=== PATIENT | female | born 1950 | race Caucasian/White ===

== ENCOUNTER → 2021-11-26 09:25 | Outpatient (REF) | payer MEDICAID, SELFPAY ==
--- NOTE | 2021-11-26 09:39 | CA_ITS ---
Transthoracic Echocardiogram Patient (Last, First, Middle): Rosalie Wong C Gender: Female Date of : 1950 Age: 71 Procedure Date: 11/26/2021 Procedure Type: Transthoracic Echocardiogram Location: OP Height: 165.1 cm Weight: 102.51 kg BSA: 2.08 m2 Heart Rate: bpm BP: 125 / 63 mmHg Substation Technician: MARCELO Referring MD: Diamante Gunn MD Symptoms: I10 - Essential (primary) hypertension Study Quality: Adequate ECG Rhythm: Sinus Conclusions: - The left ventricular systolic function is normal. The calculated ejection fraction is 67% by biplane method. - There is mild calcification of the aortic valve. - There is mild mitral annular calcification. There is mild mitral valve regurgitation. Findings Left Ventricle Normal left ventricular cavity size. There is mildly increased left ventricular wall thickness. The left ventricular systolic function is normal. The calculated ejection fraction is 67% by biplane method. There is no evidence of regional wall motion abnormalities. E/E prime ratio is >15, consistent with elevated filling pressures. Evidence suggests grade I (mild) diastolic dysfunction. Right Ventricle Normal right ventricular cavity size and systolic function. Atria The left atrium is moderately dilated. The right atrium is normal in size. Aortic Valve There is a normal trileaflet aortic valve. There is mild calcification of the aortic valve. There is no aortic valve stenosis. There is no aortic valve regurgitation. Mitral Valve The mitral valve appears normal. There is mild mitral annular calcification. There is mild mitral valve regurgitation. There is no mitral valve stenosis. Pulmonic Valve There is trace pulmonic valve regurgitation. Tricuspid Valve Normal tricuspid valve structure. There is no tricuspid valve regurgitation. Tricuspid regurgitation envelope is inadequate for calculation of right ventricular systolic pressure. Great Vessels The aortic annulus, sinuses of valsalva, and asc aorta are normal in size. Venous The inferior vena cava is normal in size and collapses greater than 50% with inspiration. Pericardium/Pleural There is a trivial pericardial effusion. Prior Study Comparison No prior study available for comparison. Measurements 2D Linear Measurements IVSd: 1.27 0.6-0.9/0.6-1.0 cm LVIDd: 4.18 3.9-5.3/4.2-5.9 cm LVIDd Index: 2.01 2.4-3.2/2.2-3.1 cm/m2 LVIDs: 2.84 2.0-3.6 cm LVPWd: 1.19 0.7-1.1 cm LA Diam: 4.00 2.7-3.8/3.0-4.0 cm LAIDs Index: 1.92 1.5-2.3 cm/m2 LV Mass: 228.51 67-162/88-224 g LV Mass Index: 109.86 43-95/49-115 g/m2 LVOT Diam: 2.20 3.0+(-)1.3 cm 2D Systolic Function EF 4C: 68.20 >55% EF 2C: 65.20 >55% EF BiP: 66.60 >55% Mitral Valve MV Pk E: 1.08 MV PK A: 1.23 MV Decel Time: 289.00 E/A: 0.90 E'Lateral: 6.74 E'Medial: 4.35 E/E' Med: 24.80 E/E' Lat: 16.00 PHT: 85.00 MVA PHT: 2.59 Decel [place]: 3.75 Aortic Valve AoV Pk Paul: 1.43 AoV Mn Paul: 0.89 AoV VTI: 0.37 AoV Pk Grad: 8.00 Aov Mn Grad: 4.00 AUDREY Cont.VTI: 3.23 LVOT LVOT Pk Paul: 1.16 LVOT Mn Paul: 0.76 LVOT VTI: 0.31 LVOT Pk Grad: 5.00 LVOT Mn Grad: 3.00 LVOT Diam: 2.20 LVOT Area: 3.80 Diastolic Function MV Pk E: 1.08 MV Pk A: 1.23 E/A: 0.90 E'Medial: 4.35 E/E' Med: 24.80 E' Laterial: 6.74 E/E' Lat: 16.00 Tricuspid Valve RA Press: 3.00 Great Vessels Aorta Sinus of Valsalva: 3.00 2.0-3.[address] [place]: 2.58 1.7-3.4 cm Ao Asc: 3.50 2.1-3.4 cm Updated in Other Vendor System with Status of Final Rosendo Santa MD electronically signed on 11/26/2021 11:27:44 AM with status of Final
== END ==
LOC: HO.CARD 09:25
PROVIDERS: PCP Internal Medicine; Visit Provider Internal Medicine
DX: I10 Essential (primary) hypertension (principal); R01.1 Cardiac murmur, unspecified
CPT/HCPCS: 93306

== ENCOUNTER 2021-11-27 08:13 | Outpatient (REF) | payer MEDICAID, SELFPAY ==
--- NOTE | ~2021-11-27 | MM_ITS ---
EXAMINATION: MM SCREENING DIGITAL BREAST TOMOSYNTHESIS, BILATERAL CLINICAL INFORMATION: Screening. Asymptomatic. Prior outside mammography from [facility] currently unavailable. Age 71. No known family history breast cancer. The lifetime risk of breast cancer based on the Tyrer-Cuzick Model is 4%. COMPARISON: None. TECHNIQUE: Digital breast tomosynthesis is performed in both the craniocaudal and mediolateral oblique views along with computer-aided detection (CAD). Synthesized 2D images are generated from the tomosynthesis. FINDINGS: There are scattered areas of fibroglandular density (ACR BI-RADS breast composition Category b). There are no significant masses, abnormal calcifications, or other abnormalities. There is small circumscribed mammary node posterior upper outer left breast. The axilla and skin contours are unremarkable. MM/MM tomosynthesis screening BI IMPRESSION: No mammographic evidence of malignancy. ASSESSMENT: BI-RADS 2: Benign RECOMMENDATION: Routine annual mammography screening. This patient's information was entered into a reminder system with a target due date for their next mammogram.
== END 2021-11-27 08:14 | disposition home or self-care (01) ==
LOC: HO.MAMMO 08:13
PROVIDERS: PCP Internal Medicine; Visit Provider Internal Medicine
DX: Z12.31 Encounter for screening mammogram for malignant neoplasm of breast (principal)
CPT/HCPCS: 77063; 77067

== ENCOUNTER 2021-12-13 08:36 | Outpatient (REF) | payer MEDICAID, SELFPAY ==
[2021-12-13 11:21] LABS: MANUAL DIFF FLAG NO
[2021-12-13 11:31] LABS: Basophils Percent Auto 0.8 % (0-2); Eosinophils Absolute Auto 0.1 X10*3/uL (0.0-0.4); Eosinophils Percent Auto 2.7 % (0-4); Hematocrit 34.3 % (37.0-47.0); Hemoglobin 11.3 g/dl (12.0-16.0); Imm Gran Abs Auto 0.01 X10*3/uL (0.00-0.03); Imm Gran Pct Auto 0.3 % (0.0-0.4); Lymphocytes Absolute Auto 1.3 X10*3/uL (1.2-4.9); Lymphocytes Percent Auto 35.4 % (20-40); Mean Corpuscular HGB Conc 32.9 g/dl (31.0-35.0); Mean Corpuscular Hemoglobin 28.2 pg (27.0-33.0); Mean Corpuscular Volume 85.5 fL (80.0-98.0); Mean Platelet Volume 10.3 fL (9.4-12.3); Monocytes Absolute Auto 0.3 X10*3/uL (0.1-1.2); Monocytes Percent Auto 7.8 % (2-11); Platelet Count 205 X10*3/uL (160-400); Red Blood Count 4.01 X10*6/uL (4.20-5.50); Red Cell Distribution Width 13.2 % (11.0-16.0); White Blood Count 3.7 X10*3/uL (4.8-10.8)
[2021-12-13 11:59] LABS: Alanine Aminotransferase 24 U/L (0-31); Albumin Level 4.2 g/dL (3.5-5.0); Alkaline Phosphatase 69 U/L (39-117); Anion Gap 13 (12-20); Aspartate Amino Transferase 23 U/L (5-31); Bilirubin Total 0.7 mg/dL (0.0-1.0); Blood Urea Nitrogen 14 mg/dL (9-16); Calcium 8.9 mg/dL (8.4-10.2); Carbon Dioxide 27 mmol/L (22-29); Chloride 104 mmol/L (96-108); Cholesterol 244 mg/dL; Estimated Glomerular Filt Rate > 60; Glucose Fasting 118 mg/dL (60-99); HDL Cholesterol 45 mg/dL; LDL Cholesterol Calculated 175 mg/dl; Potassium 3.9 mmol/L (3.3-5.1); Sodium 140 mmol/L (135-145); Total Protein 6.6 g/dL (6.5-8.0); Triglycerides 123 mg/dL
[2021-12-13 12:05] LABS: TSH reflex Free T4 2.52 uIU/mL (0.32-4.0)
[2021-12-13 13:45] LABS: Appearance Urine Clear; Color Urine Yellow; Glucose Urine UA Negative (Negative); Leukocyte Esterase Urine Negative (Negative); Nitrite Urine Negative (Negative); PH 5.5 (5.0-8.0); Urine Blood Negative (Negative); Urine Ketones Negative (Negative); Urine Protein Negative (Neg-Trace)
[2021-12-13 13:52] LABS: Bacteria Urine None Seen (None Seen); Hyaline Casts Urine 0-2 /LPF (0-2); RBC Urine 0-2 /HPF (0-2); Squamous Epithelial Cell Urine 0-2 /HPF (0-2); WBC Urine 0-5 /HPF (0-5)
== END 2021-12-13 08:37 | disposition home or self-care (01) ==
LOC: HO.HMGCLDS 08:36
PROVIDERS: PCP Internal Medicine; Visit Provider Internal Medicine
DX: E78.5 Hyperlipidemia, unspecified (principal); R73.9 Hyperglycemia, unspecified; I10 Essential (primary) hypertension
CPT/HCPCS: 36415; 80053; 80061; 81001; 84443; 85025

== ENCOUNTER 2021-12-20 10:54 | Outpatient (REF) | payer MEDICAID, SELFPAY ==
[2021-12-20 14:27] LABS: Iron 102 mcg/dL (30-160); Percent Iron Saturation 34 % (15-50); Total Iron Binding Capacity 302 mcg/dL (228-428); Unsaturated Iron Binding 200 ug/dL
[2021-12-20 15:05] LABS: Folate 10.9 ng/mL (> or = 4.0); Vitamin B12 352 pg/mL (200-900)
== END 2021-12-20 10:55 | disposition home or self-care (01) ==
LOC: HO.HMGCLDS 10:54
PROVIDERS: PCP Internal Medicine; Visit Provider Internal Medicine
DX: D64.9 Anemia, unspecified (principal)
CPT/HCPCS: 36415; 82607; 82746; 83540

== ENCOUNTER 2022-02-07 09:25 | Outpatient (REF) | payer MEDICAID, SELFPAY ==
[2022-02-07 11:45] LABS: Baso%MD 0.9 %; Eos%MD 1.8 %; Hematocrit 34.7 % (37.0-47.0); Hemoglobin 11.4 g/dl (12.0-16.0); IG%MD 0.3 %; Mean Corpuscular HGB Conc 32.9 g/dl (31.0-35.0); Mean Corpuscular Hemoglobin 28.3 pg (27.0-33.0); Mean Corpuscular Volume 86.1 fL (80.0-98.0); Mean Platelet Volume 10.2 fL (9.4-12.3); Mono%MD 8.3 %; Neut%MD 52.7 %; Platelet Count 210 X10*3/uL (160-400); Red Blood Count 4.03 X10*6/uL (4.20-5.50); Red Cell Distribution Width 13.2 % (11.0-16.0); White Blood Count 3.4 X10*3/uL (4.8-10.8)
[2022-02-07 11:54] LABS: Estimated Average Glucose 123 mg/dL; Hemoglobin A1c % 5.9 %
[2022-02-07 12:17] LABS: Anion Gap 15 (12-20); Blood Urea Nitrogen 19 mg/dL (9-16); Calcium 9.4 mg/dL (8.4-10.2); Carbon Dioxide 28 mmol/L (22-29); Chloride 104 mmol/L (96-108); Cholesterol 243 mg/dL; Estimated Glomerular Filt Rate > 60; Glucose Fasting 130 mg/dL (60-99); HDL Cholesterol 47 mg/dL; LDL Cholesterol Calculated 179 mg/dl; Potassium 4.4 mmol/L (3.3-5.1); Sodium 143 mmol/L (135-145); Triglycerides 87 mg/dL
[2022-02-07 12:40] LABS: Vitamin D 25-OH Total 24.6 ng/mL (>30)
[2022-02-07 13:50] LABS: Lymphocytes Absolute Manual 1.2 X10*3/uL (1.2-4.9); Lymphocytes Percent Manual 34 % (20-40); Monocytes Absolute Manual 0.3 X10*3/uL (0.1-1.2); Monocytes Percent Manual 10 % (2-11); Neutrophils Percent Manual 56 % (45-73)
[2022-02-07 13:52] LABS: Hypochromasia 1+ (5-14) /OIF; Microcytosis 1+ (5-14) /OIF; Platelet Estimate NORMAL (NORMAL); Platelet Morphology Comment NORMAL; RBC Morphology NOTED
[2022-02-07 14:29] LABS: Band Neutrophils Percent 0 % (3-5); Neutrophils Absolute Manual 1.9 X10*3/uL (2.0-8.3)
[2022-02-12 08:07] LABS: IgA 102 mg/dL (70-320); IgG 1050 mg/dL (600-1540); IgM 39 mg/dL (50-300)
== END 2022-02-07 09:26 | disposition home or self-care (01) ==
LOC: HO.HMGCLDS 09:25
PROVIDERS: PCP Internal Medicine; Visit Provider Internal Medicine
DX: D64.9 Anemia, unspecified (principal); E55.9 Vitamin D deficiency, unspecified; E78.5 Hyperlipidemia, unspecified; R73.9 Hyperglycemia, unspecified; I10 Essential (primary) hypertension
CPT/HCPCS: 36415; 80048; 80061; 82306; 82784; 83036; 85007; 85027; 86334

== ENCOUNTER → 2022-03-26 10:59 | Outpatient (BNVA) | payer MEDICAID, SELFPAY | PROVIDERS: PCP Internal Medicine; Visit Provider Physician Assistant | DX: Z01.818 Encounter for other preprocedural examination (principal); R19.5 Other fecal abnormalities; Z80.0 Family history of malignant neoplasm of digestive organs | CPT/HCPCS: 99202 ==

== ENCOUNTER 2022-07-25 09:55 | Outpatient (REF) | payer MEDICAID, SELFPAY ==
[2022-07-25 11:17] LABS: MANUAL DIFF FLAG NO
[2022-07-25 11:51] LABS: Basophils Percent Auto 0.7 % (0-2); Eosinophils Absolute Auto 0.1 X10*3/uL (0.0-0.4); Eosinophils Percent Auto 2.1 % (0-4); Hematocrit 36.3 % (37.0-47.0); Hemoglobin 11.7 g/dl (12.0-16.0); Imm Gran Abs Auto 0.01 X10*3/uL (0.00-0.03); Imm Gran Pct Auto 0.2 % (0.0-0.4); Lymphocytes Absolute Auto 1.3 X10*3/uL (1.2-4.9); Lymphocytes Percent Auto 31.9 % (20-40); Mean Corpuscular HGB Conc 32.2 g/dl (31.0-35.0); Mean Corpuscular Hemoglobin 27.7 pg (27.0-33.0); Mean Platelet Volume 9.8 fL (9.4-12.3); Monocytes Absolute Auto 0.4 X10*3/uL (0.1-1.2); Monocytes Percent Auto 8.3 % (2-11); Neutrophils Absolute Auto 2.4 x10*3/uL (2.0-8.3); Neutrophils Percent Auto 56.8 % (45-73); Platelet Count 224 X10*3/uL (160-400); Red Blood Count 4.22 X10*6/uL (4.20-5.50); Red Cell Distribution Width 13.2 % (11.0-16.0); White Blood Count 4.2 X10*3/uL (4.8-10.8)
[2022-07-25 12:16] LABS: Estimated Average Glucose 126 mg/dL
[2022-07-25 12:19] LABS: Alanine Aminotransferase 24 U/L (0-31); Albumin Level 4.3 g/dL (3.5-5.0); Alkaline Phosphatase 83 U/L (39-117); Anion Gap 11 (12-20); Aspartate Amino Transferase 25 U/L (5-31); Bilirubin Total 0.8 mg/dL (0.0-1.0); Blood Urea Nitrogen 18 mg/dL (9-16); Calcium 9.4 mg/dL (8.4-10.2); Carbon Dioxide 29 mmol/L (22-29); Chloride 106 mmol/L (96-108); Cholesterol 249 mg/dL; Estimated Glomerular Filt Rate > 60; Glucose Fasting 121 mg/dL (60-99); HDL Cholesterol 48 mg/dL; Iron 95 mcg/dL (30-160); LDL Cholesterol Calculated 178 mg/dl; Percent Iron Saturation 35 % (15-50); Potassium 4.7 mmol/L (3.3-5.1); Sodium 141 mmol/L (135-145); Total Iron Binding Capacity 273 mcg/dL (228-428); Total Protein 6.6 g/dL (6.5-8.0); Triglycerides 117 mg/dL; Unsaturated Iron Binding 178 ug/dL
[2022-07-25 12:25] LABS: Creatinine Urine 110.45 mg/dL; Microalbum/Creatinine Ratio Ur 6.3 ug/mg cr
[2022-07-25 12:54] LABS: Folate 13.3 ng/mL (> or = 4.0); Vitamin B12 493 pg/mL (200-900); Vitamin D 25-OH Total 30.3 ng/mL (>30)
== END 2022-07-25 09:56 | disposition home or self-care (01) ==
LOC: HO.HMGCLDS 09:55
PROVIDERS: PCP Internal Medicine; Visit Provider Internal Medicine
DX: D64.9 Anemia, unspecified (principal); E55.9 Vitamin D deficiency, unspecified; E78.5 Hyperlipidemia, unspecified; R73.9 Hyperglycemia, unspecified; I10 Essential (primary) hypertension
CPT/HCPCS: 36415; 80053; 80061; 82043; 82306; 82607; 82746; 83036; 83540; 85025

== ENCOUNTER 2022-08-22 10:41 | Day surgery (SDC) | payer MEDICAID, SELFPAY ==
[2022-08-19 14:51] VITALS: BMI 39.4
--- NOTE | 2022-08-21 12:32 | HO.ANESPROP2 ---
Documented by User: Linda Andre NP 08/21/22 12:34 HPI - Anesthesia Eval Consult details Narrative: 71yo F for Colonoscopy PMFSH Active Problems Active Problems: All Active Problems (Updated 08/19/22 @ 14:48 by Jenn Rayo RN) HTN (hypertension) (Acute) Hyperlipidemia (Acute) Hyperglycemia (Acute) Annual physical exam (Acute) Heart murmur (Acute) Anemia (Acute) Vitamin D deficiency (Acute) Colonoscopy refused (Acute) Positive colorectal cancer screening using Cologuard test (Acute) Family history of colon cancer in father (Acute) Past Medical History Medical History (Updated 08/19/22 @ 14:48 by Jenn Rayo RN) Anemia Elevated cholesterol HTN (hypertension) Murmur Family History Family History Father Colon cancer, Onset Age: 92 Mother Hypertension Stroke Surgical History Surgical History (Updated 08/19/22 @ 14:53 by Jenn Rayo RN) Surgical history unknown Social History Social History Housing: House Patient Tobacco Use Status: Never used Tobacco e-Cigarette/Vaping Use: Never Used Are you DNR?: No Advance Directives: No Advance Directives Information Provided: Yes Nutrition Risks: No Nutritional Risk service: No Current occupational status: retired Cognitive needs: No Hearing needs: No Vision needs: Yes Meds Allergies Allergy/AdvReac Type Severity Reaction Status Date / Time No Known Allergies Allergy Verified 07/25/22 08:55 Exam Exam Date and Time: August 21, 2022 1232 Height,Weight and Vital Signs: Height 5 ft 3 in Weight 101.151 kg Pertinent Lab Results Pertinent Lab Results: Laboratory Tests 07/25/22 07/25/22 10:07 10:07 WBC 4.2 L Hgb 11.7 L Hct 36.3 L Plt Count 224 Sodium 141 Potassium 4.7 Chloride 106 Carbon Dioxide 29 BUN 18 H Creatinine 0.78 Narrative Narrative: ECHO 11/2021 Conclusions: - The left ventricular systolic function is normal.? The ? calculated ejection fraction is 67% by biplane method. ? - There is mild calcification of the aortic valve. ? - There is mild mitral annular calcification.? There is mild ? ? mitral valve regurgitation.? EKG 11/2021 SB @ 57 1st deg AV block Nonspec T wave abn Assessment and Plan Assessment Anesthesia Assessment: Chart Reviewed Documented by User: Uriel Cespedes MD 08/22/22 12:12 PMFSH Past Medical History Medical History (Updated 08/19/22 @ 14:48 by Jenn Rayo RN) Anemia Elevated cholesterol HTN (hypertension) Murmur Family History Family History Father Colon cancer, Onset Age: 92 Mother Hypertension Stroke Family history of problems with anesthesia: No Surgical History Surgical History (Updated 08/19/22 @ 14:53 by Jenn Rayo RN) Surgical history unknown History of Problems with Anesthesia: Yes Social History Social History Housing: House Patient Tobacco Use Status: Never used Tobacco e-Cigarette/Vaping Use: Never Used Are you DNR?: No Advance Directives: No Advance Directives Information Provided: Yes Nutrition Risks: No Nutritional Risk service: No Current occupational status: retired Cognitive needs: No Hearing needs: No Vision needs: Yes Meds Allergies Allergy/AdvReac Type Severity Reaction Status Date / Time No Known Allergies Allergy Verified 07/25/22 08:55 Exam Airway Mallampati Class: II TM Dist: >3cm Neck ROM: Full Heart: rrr Lungs: cts Assessment and Plan Assessment Anesthesia Assessment: Anesthesia Plan Discussed Final Anesthetic Review Family History of Problems with Anesthesia: No History of Problems with Anesthesia: Yes ASA Class: III Final Preanesthetic Review: No Changes in Pt Med Stat and Consent Obtained/Reviewed Patient Risk: Intermediate Procedure Risk: Low Anesthetic Plan Anesthetic Plan: MAC: Disposition: Standard PACU
[2022-08-22 10:57] VITALS: BP 157/78; PULSE 85; RESP 18; TEMP 36.1; O2SAT 97
[2022-08-22] MEDS: Lactated Ringers 1,000 ML 100 ML IVCONT (11:28)
--- NOTE | 2022-08-22 12:09 | MHC.SHP ---
Pre-Procedural Eval Section A Date of Service: 08/22/22 The patient is an INPATIENT: No The History & Physical has been completed within 30 days and I have reviewed it.: No Section B Chief Complaint: Family history of malignant neoplasm of digestive Relevant Family History (Specify if Yes): Yes Relevant Social History: None Present Medications: see Short Stay Collaborative assessment Medical History: Significant History (Hypertension, hyperlipidemia, anemia) History of Previous Operations: No relevant previous surgery Allergies: Allergies Allergy/AdvReac Type Severity Reaction Status Date / Time No Known Allergies Allergy Verified 07/25/22 08:55 Review of Systems Sugical H&P ROS: Negative: Constitution, Cardiovascular, Respiratory and Gastrointestinal Exam Surgical H&P Exam: Normal: Heart, Normal: Lungs, Normal: Extremities and Normal: Abdomen Plan Diagnosis/Plan: Unchanged I have reviewed the history and physical and performed a pertinent physical examination on my patient. No changes have occurred unless specified. Time Spent With Patient Time: Total time managing care of this patient today ____ minutes.
--- NOTE | 2022-08-22 12:19 | W.PM.OPN ---
Operative Note Operative Note Date of Service: 08/22/22 Narrative: COLONOSCOPY TILL CECUM WITH BIOPSIES, SNARE POLYPECTOMY AND SUBMUCOSAL INJECTION Pre-op diagnosis: Colon cancer screening (1st colonoscopy), positive Cologuard test, family history of colon cancer - Dad at an advanced age Post-op diagnosis:? Colon polyps, diverticulosis, hemorrhoids Endoscopist:? Varun Cyr MD Anesthesia:?MAC Consent: Indications for the procedure and potential complications of bleeding, perforation, reaction to medications and missed diagnosis were discussed with the patient with the help of her [place] speech language pathologist and informed consent was obtained. Instrument: Olympus PCF H 190 L variable stiffness pediatric colonoscope Monitoring: Vital signs and clinical assessment, intermittent blood pressure monitoring, continuous EKG monitoring, Pulse oximetry and Carbon Dioxide monitoring were done throughout the procedure. Please see anesthesia flowsheet. Colon withdrawl time was 31 minutes. Procedure: The patient was placed in the left lateral decubitis position and pre-procedure medications were administered. After a digital rectal examination of the ano-rectum, the video colonoscope was inserted into the rectum and advanced through the colon to the cecum. The colonoscope was slowly withdrawn in a retrograde panoramic fashion and the colon mucosa was carefully examined including a retroflexed view of the rectum. Findings and interventions are described below. Procedure Difficulty: Without difficulty Findings: Terminal Ileum: Not evaluated Cecum: Normal Ascending Colon: Two 5-6 mm sessile polyps removed with a cold snare and a cold biopsy A 10 - 12 mm flat polyp raised with 1 cc of [place] and removed with a hot snare Transverse Colon: A 10 mm sessile polyp - removed with a hot snare Descending Colon: Moderate diverticulosis Sigmoid Colon: Two 15 to 20 mm sessile polyps - removed with a hot snare. Moderate diverticulosis Rectum: A 2 to 2.5 cms sessile polyp - removed with a hot snare Ano-rectum: Moderate internal hemorrhoids Colon preparation: Excellent Impression and Post Procedure Diagnosis: Colonoscopy Findings: Two small and five medium to large sized polyps removed Moderate diverticulosis seen in the left colon Moderate hemorrhoids on retroflexed exam. Plan: I will send a letter with pathology results Patient has an appointment on 10/24/22 in the [facility] with NUBIA Laughlin. Repeat Colonoscopy interval based on path results - in 2 years if polyps are adenomatous and 10 years if polyps are hyperplastic. Above findings were reviewed with the patient and colon polyps and diverticulosis handouts were given in the discharge area
[2022-08-22 13:10] VITALS: BP 111/55; PULSE 70; RESP 18; TEMP 36.6; O2SAT 99
[2022-08-22 13:25] VITALS: BP 156/60; PULSE 72; RESP 16; O2SAT 98
[2022-08-22 13:40] VITALS: BP 156/63; PULSE 64; RESP 16; TEMP 36.4; O2SAT 98
== END 2022-08-22 14:34 | disposition home or self-care (01) ==
PROVIDERS: PCP Internal Medicine; Visit Provider Internal Medicine Gastroenterology
PROC: 0DJD8ZZ Inspection of Lower Intestinal Tract, Via Natural or Artificial Opening Endoscopic (ICD-10-PCS; CPT 45378; principal; 2022-08-22 12:20)
DX: R19.5 Other fecal abnormalities (principal); Z80.0 Family history of malignant neoplasm of digestive organs; D12.2 Benign neoplasm of ascending colon; D12.3 Benign neoplasm of transverse colon; D12.8 Benign neoplasm of rectum; K57.30 Diverticulosis of large intestine without perforation or abscess without bleeding; K64.8 Other hemorrhoids; D64.9 Anemia, unspecified; I10 Essential (primary) hypertension; E78.5 Hyperlipidemia, unspecified; Z79.899 Other long term (current) drug therapy
CPT/HCPCS: 45385; 45380; 45381; 88305

== ENCOUNTER → 2022-10-24 09:04 | Outpatient (BNVA) | payer MEDICAID, SELFPAY | PROVIDERS: Visit Provider Physician Assistant | DX: D12.6 Benign neoplasm of colon, unspecified (principal); K57.30 Diverticulosis of large intestine without perforation or abscess without bleeding | CPT/HCPCS: 99212 ==

== ENCOUNTER 2022-11-19 10:01 | Outpatient (AMB) | payer MEDICAID, SELFPAY ==
--- NOTE | 2022-11-19 10:15 | MHC.PC.OV ---
Vital Signs 11/19/22 10:16 Height 5 ft 3 in Weight 221 lb BMI 39.1 BP 120/78 Blood Pressure Location Lt brachial Position Sitting Pulse 60 Pulse Source Pulse Oximeter Pulse Oximetry (%) 97 Oxygen Delivery Method Room Air Intake Visit Reasons: 4 month f/u labs Allergies No Known Allergies Allergy (Verified 11/19/22 10:17) Medication List - Last Reconciled 11/19/22 by Diamante Gunn MD indapamide 1.25 mg PO QAM losartan 50 mg PO DAILY paroxetine HCl 10 mg PO DAILY potassium chloride ER 10 mEq PO DAILY Tobacco use date assessed: 07/25/22 HPI 4 month f/u labs HPI Details Pt presents for f/u HTN, stable on meds. Pt c/o chronic R shoulder and right elbow pain worse when using and lifting. Patient denies any weakness in the right upper extremity. PFSH Medical History (Updated 11/19/22 @ 11:08 by Diamante Gunn MD) Anemia Elevated cholesterol HTN (hypertension) Murmur Surgical History (Updated 11/19/22 @ 11:06 by Diamante Gunn MD) Hx of colonoscopy Surgical history unknown Family History Father Colon cancer, Onset Age: 92 Mother Hypertension Stroke Social History Housing: House Patient Tobacco Use Status: Never used Tobacco e-Cigarette/Vaping Use: Never Used service: No Current occupational status: retired Cognitive needs: No Hearing needs: No Vision needs: Yes Questionnaire Thrive Questionnaire Date Thrive assessed: 07/25/22 MADHURI-7 AMB Questionnaire MADHURI-7 Date MADHURI - 7 assessed: 07/25/22 Source: Developed by Drs. Niranjan Rivera, Daisy Dean, Herminio Herman and colleagues, with an educational sky from [employer]. Review of Systems Const All systems reviewed & are unremarkable except as noted in HPI and below Reports no additional complaints Eyes Reports no additional complaints ENT Reports no additional complaints Card Reports no additional complaints Resp Reports no additional complaints GI Reports no additional complaints Reports no additional complaints Physical exam (Primary Care) Vital Signs: Last Vital Signs Pulse 60 11/19/22 10:16 BP 120/78 11/19/22 10:16 Pulse Ox 97 11/19/22 10:16 Oxygen Delivery Method Room Air 11/19/22 10:16 BMI result Body Mass Index 39.1 Tobacco/Smoking Status: Tobacco use Status Tobacco use date assessed 07/25/22 11/19/22 10:18 Patient Tobacco Use Status Never used Tobacco 11/19/22 10:18 e-Cigarette/Vaping Use Never Used 11/19/22 10:18 Thrive Assessment: Date of Thrive Assessment Date Thrive assessed 07/25/22 11/19/22 10:18 Const General: no acute distress HENMT Head: Yes normal to inspection Ears: hearing grossly normal bilaterally Throat: Yes posterior oropharynx normal Eyes General: appearance normal, both eyes and all related structures Neck Neck: Yes no lymphadenopathy and Yes supple Resp Effort & Inspection: normal respiratory effort Auscultation: clear to auscultation bilaterally Cardio Rhythm: regular rhythm Heart sounds: S1 normal heart sound present and S2 normal heart sound present GI Inspection: Yes normal to inspection Palpation (GI): Soft to palpation Extrem Other: DECREASED RANGE OF MOTION RIGHT UPPER SHOULDER AND RIGHT ELBOW Assessment and Plan Assessment & Plan (1) HTN (hypertension): Code(s): I10 - Essential (primary) hypertension Plan: cont meds (2) Hyperlipidemia: Comment: Patient declined taking statin Code(s): E78.5 - Hyperlipidemia, unspecified Plan: cont low cholesterol diet (3) Hyperglycemia: Comment: A1c 5.9 03/12 Code(s): R73.9 - Hyperglycemia, unspecified Plan: cont ADA check A1C today (4) Vitamin D deficiency: Code(s): E55.9 - Vitamin D deficiency, unspecified (5) Shoulder pain, right: Code(s): M25.511 - Pain in right shoulder Plan: check XR and refer to PT (6) Anemia: Comment: Anemia and neutropenia, normal iron studies vitamin B12 and TSH Code(s): D64.9 - Anemia, unspecified Plan: MONITOR CBC (7) Hx of colonoscopy: Comment: 08/2022 Ger, multiple polyps, repeat 1 yr Code(s): Z98.890 - Other specified postprocedural states Orders: Orders Comprehensive [place]. Panel Fast Today E55.9 - Vitamin D deficiency, unspecified, E78.5 - Hyperlipidemia, unspecified, I10 - Essential (primary) hypertension, R73.9 - Hyperglycemia, unspecified Hemoglobin A1c Today E78.5 - Hyperlipidemia, unspecified, I10 - Essential (primary) hypertension, R73.9 - Hyperglycemia, unspecified Lipid Panel Today E55.9 - Vitamin D deficiency, unspecified, E78.5 - Hyperlipidemia, unspecified, I10 - Essential (primary) hypertension, R73.9 - Hyperglycemia, unspecified Complete Blood Count Auto Diff Today E55.9 - Vitamin D deficiency, unspecified, E78.5 - Hyperlipidemia, unspecified, I10 - Essential (primary) hypertension, R73.9 - Hyperglycemia, unspecified PT Evaluation and Treatment Today M25.511 - Pain in right shoulder XR elbow RT 2V Today M25.511 - Pain in right shoulder XR shoulder RT min 2V Today M25.511 - Pain in right shoulder Coding Level of Care Code Est Pt Level 4 (59292) Diagnoses HTN (hypertension) I10 Hyperlipidemia E78.5 Hyperglycemia R73.9 Vitamin D deficiency E55.9 Shoulder pain, right M25.511 Anemia D64.9 Hx of colonoscopy Z98.890
[2022-11-19 10:16] VITALS: BP 120/78; PULSE 60; O2SAT 97; BMI 39.1
== END 2022-11-19 10:51 | disposition home or self-care (01) ==
PROVIDERS: Visit Provider Internal Medicine
DX: I10 Essential (primary) hypertension (principal); E55.9 Vitamin D deficiency, unspecified; Z98.890 Other specified postprocedural states; E78.5 Hyperlipidemia, unspecified; R73.9 Hyperglycemia, unspecified; M25.511 Pain in right shoulder; D64.9 Anemia, unspecified
CPT/HCPCS: 99214

== ENCOUNTER 2022-12-05 08:47 | Outpatient (REF) | payer MEDICAID, SELFPAY ==
--- NOTE | ~2022-12-05 | XR_ITS ---
EXAMINATION: XR ELBOW, RIGHT CLINICAL INFORMATION: Pain COMPARISON: None available. TECHNIQUE: AP, lateral, and oblique views of the right elbow. FINDINGS: No acute fracture or dislocation. Mild degenerative changes of the elbow with triceps tendon enthesopathy and degenerative spurring tendon. Soft tissues are unremarkable. No joint effusion. XR/XR elbow RT 2V IMPRESSION: Mild degenerative changes of the elbow.
--- NOTE | ~2022-12-05 | XR_ITS ---
EXAMINATION: XR SHOULDER, RIGHT CLINICAL INFORMATION: Reason for Exam M25.511 - Pain in right shoulder COMPARISON: None TECHNIQUE: Four views of the shoulder. FINDINGS: No acute fracture or dislocation. Moderate degenerative changes of the acromioclavicular joint with degenerative spurring and loss of joint space. Glenohumeral joint space maintained. Soft tissues are unremarkable. XR/XR shoulder RT min 2V IMPRESSION: * Moderate degenerative changes of the shoulder.
[2022-12-05 11:17] LABS: MANUAL DIFF FLAG NO
[2022-12-05 11:30] LABS: Eosinophils Absolute Auto 0.1 X10*3/uL (0.0-0.4); Eosinophils Percent Auto 2.8 % (0-4); Hematocrit 35.2 % (37.0-47.0); Hemoglobin 11.6 g/dl (12.0-16.0); Imm Gran Abs Auto 0.01 X10*3/uL (0.00-0.03); Imm Gran Pct Auto 0.3 % (0.0-0.4); Lymphocytes Absolute Auto 1.2 X10*3/uL (1.2-4.9); Lymphocytes Percent Auto 31.2 % (20-40); Mean Platelet Volume 10.2 fL (9.4-12.3); Monocytes Absolute Auto 0.4 X10*3/uL (0.1-1.2); Monocytes Percent Auto 9.8 % (2-11); Neutrophils Absolute Auto 2.2 x10*3/uL (2.0-8.3); Neutrophils Percent Auto 54.9 % (45-73); Platelet Count 222 X10*3/uL (160-400); Red Blood Count 4.14 X10*6/uL (4.20-5.50); Red Cell Distribution Width 13.5 % (11.0-16.0)
[2022-12-05 11:40] LABS: Estimated Average Glucose 123 mg/dL; Hemoglobin A1c % 5.9 %
[2022-12-05 11:55] LABS: Alanine Aminotransferase 26 U/L (0-31); Albumin Level 4.2 g/dL (3.5-5.0); Alkaline Phosphatase 73 U/L (39-117); Anion Gap 10 (12-20); Aspartate Amino Transferase 22 U/L (5-31); Bilirubin Total 0.8 mg/dL (0.0-1.0); Blood Urea Nitrogen 23 mg/dL (9-16); Calcium 9.7 mg/dL (8.4-10.2); Carbon Dioxide 29 mmol/L (22-29); Chloride 105 mmol/L (96-108); Cholesterol 253 mg/dL; Estimated Glomerular Filt Rate > 60; Glucose Fasting 122 mg/dL (60-99); HDL Cholesterol 50 mg/dL; LDL Cholesterol Calculated 186 mg/dl; Potassium 4.2 mmol/L (3.3-5.1); Sodium 140 mmol/L (135-145); Triglycerides 85 mg/dL
== END 2022-12-05 08:48 | disposition home or self-care (01) ==
LOC: HO.HMGCX 08:47
PROVIDERS: PCP Internal Medicine; Visit Provider Internal Medicine
DX: M25.511 Pain in right shoulder (principal); M25.521 Pain in right elbow; E55.9 Vitamin D deficiency, unspecified; E78.5 Hyperlipidemia, unspecified; I10 Essential (primary) hypertension; R73.9 Hyperglycemia, unspecified
CPT/HCPCS: 36415; 73030; 73070; 80053; 80061; 83036; 85025

== ENCOUNTER 2022-12-19 08:00 | Outpatient (RCR) | payer MEDICAID, SELFPAY ==
--- NOTE | 2023-05-06 14:17 | MHC.PT.DC ---
[facility] [place] Office [place] Office [place] Office [address] Fanny Hamm [address] [phone] F: [phone] F: [phone] F: [phone] F: [phone] Physical Therapy Discharge Report Diagnosis: pain in R shoulder Date of Surgery: Date of Evaluation: 12/12/22 Date of Discharge: 01/16/23 Treatments to Date: 3 Cancellations to Date: No Shows to Date: Discharge Status: Independent with HEP Discharge Summary: Pt elected to stop at this time. 12/19/22: progressing well on s/s. no adverse reactions and we updated HEP 12/17/22: pt progressing well with skilled PT. less pain with overhead reach. compliant with HEP. we will progress as tolerated NV. Patient is a 72 year old R handed female who presents with s/s consistent with R shoulder pain. She does not work but does like to stay active around the house and in the community. Patient past medical history includes HTN. Current impairments include pain, posture, ROM, strength, activity tolerance and functional mobility. Functional limitations include decreased ability to reach, dress, lift, sleep and perform most daily activities. Patient is motivated with good rehab potential. Skilled PT will address impairments and functional limitations in order to achieve goals. Electronically signed by: Aron Fournier, PT Please sign and return to therapist. Thank you for your referral.
== END 2023-05-06 14:17 | disposition home or self-care (01) ==
LOC: HO.PTCHIC 08:00
PROVIDERS: PCP Internal Medicine; Visit Provider Internal Medicine
DX: M25.511 Pain in right shoulder (principal)
CPT/HCPCS: 97110; 97140; 97162

== ENCOUNTER 2022-12-31 11:32 | Outpatient (REF) | payer MEDICAID, SELFPAY | END 2022-12-31 11:33 | disposition home or self-care (01) | LOC: HO.MAMMO 11:32 | PROVIDERS: PCP Internal Medicine; Visit Provider Internal Medicine | DX: Z12.31 Encounter for screening mammogram for malignant neoplasm of breast (principal) | CPT/HCPCS: 77063; 77067 ==

== ENCOUNTER → 2022-12-31 11:45 | Outpatient (BNV) | payer MEDICAID, SELFPAY | PROVIDERS: PCP Internal Medicine; Visit Provider Radiology Diagnostic Radiology | DX: Z12.31 Encounter for screening mammogram for malignant neoplasm of breast (principal) | CPT/HCPCS: 77063; 77067 ==

== ENCOUNTER 2023-05-22 09:48 | Outpatient (REF) | payer MEDICAID, SELFPAY ==
[2023-05-22 11:10] LABS: MANUAL DIFF FLAG NO
[2023-05-22 11:41] LABS: Basophils Percent Auto 0.9 % (0-2); Eosinophils Absolute Auto 0.1 X10*3/uL (0.0-0.4); Eosinophils Percent Auto 1.8 % (0-4); Hemoglobin 11.7 g/dl (12.0-16.0); Imm Gran Abs Auto 0.01 X10*3/uL (0.00-0.03); Imm Gran Pct Auto 0.3 % (0.0-0.4); Lymphocytes Absolute Auto 1.1 X10*3/uL (1.2-4.9); Lymphocytes Percent Auto 33.1 % (20-40); Mean Corpuscular HGB Conc 33.4 g/dl (31.0-35.0); Mean Corpuscular Hemoglobin 28.3 pg (27.0-33.0); Mean Corpuscular Volume 84.7 fL (80.0-98.0); Monocytes Absolute Auto 0.3 X10*3/uL (0.1-1.2); Neutrophils Absolute Auto 1.8 x10*3/uL (2.0-8.3); Neutrophils Percent Auto 54.9 % (45-73); Platelet Count 213 X10*3/uL (160-400); Red Blood Count 4.13 X10*6/uL (4.20-5.50); Red Cell Distribution Width 13.5 % (11.0-16.0); White Blood Count 3.3 X10*3/uL (4.8-10.8)
[2023-05-22 11:45] LABS: Estimated Average Glucose 123 mg/dL; Hemoglobin A1c % 5.9 % (<6.0)
[2023-05-22 12:14] LABS: Alanine Aminotransferase 17 U/L (0-31); Alkaline Phosphatase 70 U/L (39-117); Anion Gap 10 (12-20); Aspartate Amino Transferase 18 U/L (5-31); Bilirubin Total 0.6 mg/dL (0.0-1.0); Blood Urea Nitrogen 17 mg/dL (9-16); Carbon Dioxide 30 mmol/L (22-29); Chloride 104 mmol/L (96-108); Cholesterol 225 mg/dL (<200); Estimated Glomerular Filt Rate > 60; Glucose Fasting 115 mg/dL (60-99); HDL Cholesterol 49 mg/dL (>40); LDL Cholesterol Calculated 157 mg/dL (<100); Sodium 140 mmol/L (135-145); Total Protein 6.6 g/dL (6.5-8.0); Triglycerides 98 mg/dL (<150)
[2023-05-22 13:55] LABS: Creatinine Urine 116.73 mg/dL; Microalbum/Creatinine Ratio Ur 6.8 ug/mg cr (<30)
== END 2023-05-22 09:49 | disposition home or self-care (01) ==
LOC: HO.HMGCLDS 09:48
PROVIDERS: PCP Internal Medicine; Visit Provider Internal Medicine
DX: I10 Essential (primary) hypertension (principal); E78.5 Hyperlipidemia, unspecified; R73.9 Hyperglycemia, unspecified; D64.9 Anemia, unspecified
CPT/HCPCS: 36415; 80053; 80061; 82043; 82570; 83036; 85025

== ENCOUNTER 2023-05-27 08:35 | Outpatient (AMB) | payer MEDICAID, SELFPAY ==
[2023-05-27 08:37] VITALS: BP 144/76; PULSE 71; O2SAT 98; BMI 39.1
--- NOTE | 2023-05-27 08:37 | A.OFFPC_ITS ---
Vital Signs 05/27/23 08:37 Height 5 ft 3 in Weight 221 lb BMI 39.1 BP 144/76 H Blood Pressure Location Lt brachial Position Sitting Pulse 71 Pulse Source Pulse Oximeter Pulse Oximetry (%) 98 Oxygen Delivery Method Room Air Intake Visit Reasons: Annual PE Intake Note: Pt is here today for PE. Allergies No Known Allergies Allergy (Verified 05/27/23 08:51) Medication List - Last Reconciled 05/27/23 by Diamante Gunn MD indapamide 1.25 mg PO QAM losartan 50 mg PO DAILY losartan 100 mg PO DAILY paroxetine HCl 10 mg PO DAILY potassium chloride ER 10 mEq PO DAILY Tobacco use date assessed: 05/27/23 Fall risk assessment: No Falls in past year Last assessed Fall Risk: 05/27/23 Dental Screening Dental Screen Date: 05/27/23 Did you have a dental visit in the last 12 months?: Yes Did you have a dental problem in the last 6 months where you did not have access to dental care?: No Was dental information given to patient?: Patient has dentist HPI Annual PE HPI Details Patient presents for physical PFSH Medical History Elevated cholesterol Murmur HTN (hypertension) Anemia Surgical History Hx of colonoscopy Surgical history unknown Family History Father Colon cancer, Onset Age: 92 Mother Hypertension Stroke Social History Housing: House Patient Tobacco Use Status: Never used Tobacco e-Cigarette/Vaping Use: Never Used service: No Current occupational status: retired Cognitive needs: No Hearing needs: No Vision needs: Yes Questionnaire PHQ-9 Over the last 2 weeks, how often have you been bothered by any of the following problems? 1. Little interest or pleasure in doing things: not at all 2. Feeling down, depressed, or hopeless: not at all 3. Trouble falling or staying asleep, or sleeping too much: not at all 4. Feeling tired or having little energy: not at all 5. Poor appetite or overeating: not at all 6. Feeling bad about yourself - or that you are a failure or have let yourself or your family down: not at all 7. Trouble concentrating on things, such as reading the newspaper or watching television: not at all 8. Moving or speaking so slowly that other people could have noticed. Or the opposite - being so fidgety or restless that you have been moving around a lot more than usual: not at all 9. Thoughts that you would be better off or of hurting yourself in some way: not at all Total score: 0 Depression Screening Interpretation: Negative Depression Screening Done: Yes Source: Developed by Drs. Niranjan Rivera, Daisy Dean, Herminio Herman and colleagues, with an educational sky from [employer]. Thrive Questionnaire Date Thrive assessed: 05/27/23 I am a: Patient What is your living situation today?: I have a steady place to live Within the past 12 months, did the food you bought not last and you didn't have the money to get more?: Never true Within the past 12 months, did you worry whether your food would run out before you got money to buy more?: Never true Do you have trouble paying for medicines?: No Do you have trouble getting transportation to medical appointments?: No Do you have trouble paying your heating and electricity bill?: No Do you have trouble taking care of your child, family member or friend?: No Do you have trouble with day-to-day activities such as bathing, preparing meals, shopping, managing finances, etc.?: No Are you currently unemployed and looking for a job?: No Are you interested in more education?: No Please select the resources that you would like help with: None Currently or been in a relationship where the following occur: no concerns re ported THRIVE Score: 0 AUDIT C Alcohol Use Questionnaire (AUDIT-C) 1. How often do you have a drink containing alcohol?: Never 3. How often do you have six or more drinks on one occasion?: Never Total Score: 0 MADHURI-7 AMB Questionnaire MADHURI-7 Date MADHURI - 7 assessed: 05/27/23 Feeling nervous, anxious, or on edge: 0 = Not at all Not being able to stop or control worryin = Not at all Worrying too much about different things: 0 = Not at all Trouble relaxin = Not at all Being so restless that it is hard to sit still: 0 = Not at all Becoming easily annoyed or irritable: 0 = Not at all Feeling afraid as if something awful might happen: 0 = Not at all Total MADHURI-7 score (0-4 normal; 5-9 mild; 10-14 moderate; 15-21 severe): 0 Source: Developed by Drs. Niranjan Rivera, Daisy Dean, Herminio Herman and colleagues, with an educational sky from [employer]. Review of Systems Const All systems reviewed & are unremarkable except as noted in HPI and below Reports no additional complaints Eyes Reports no additional complaints ENT Reports no additional complaints Card Reports no additional complaints Resp Reports no additional complaints GI Reports no additional complaints Reports no additional complaints Physical exam (Primary Care) Vital Signs: Last Vital Signs Pulse 71 05/27/23 08:37 BP 144/76 H 05/27/23 08:37 Pulse Ox 98 05/27/23 08:37 Oxygen Delivery Method Room Air 05/27/23 08:37 BMI result Body Mass Index 39.1 Tobacco/Smoking Status: Tobacco use Status Tobacco use date assessed 05/27/23 05/27/23 08:56 Patient Tobacco Use Status Never used Tobacco 05/27/23 08:56 e-Cigarette/Vaping Use Never Used 05/27/23 08:39 PHQ-9: PHQ-9 Score PHQ-9: Total score 0 05/27/23 09:43 Depression Screening Interpretation: Negative Thrive Assessment: Date of Thrive Assessment Date Thrive assessed 05/27/23 05/27/23 09:05 Currently or been in a relationship where the following occur: no concerns reported Const General: no acute distress HENMT Head: Yes normal to inspection Ears: hearing grossly normal bilaterally Face and sinus: Yes normal facial exam Eyes General: appearance normal, both eyes and all related structures Neck Neck: Yes supple Resp Effort & Inspection: normal respiratory effort Auscultation: clear to auscultation bilaterally Cardio Rhythm: regular rhythm Heart sounds: S1 normal heart sound present and S2 normal heart sound present GI Inspection: Yes normal to inspection Palpation (GI): Soft to palpation Percussion: Yes normal to percussion Auscultation: normal bowel sounds Assessment and Plan Assessment & Plan (1) Hyperglycemia: Comment: A1c 5.9 03/12 Code(s): R73.9 - Hyperglycemia, unspecified Plan: Continue ADA diet increase exercise weight loss discussed with the patient (2) Anemia: Comment: Anemia and neutropenia, normal iron studies vitamin B12 and TSH Code(s): D64.9 - Anemia, unspecified Plan: Monitor CBC and iron studies (3) Vitamin D deficiency: Code(s): E55.9 - Vitamin D deficiency, unspecified Plan: Continue vitamin-D supplement (4) HTN (hypertension): Code(s): I10 - Essential (primary) hypertension Plan: Blood pressure is high and losartan will be increased to 100 mg a day. Basic metabolic panel will be checked in 1 to 2 weeks and patient will return in 1 month Orders: Orders 2 IRON PROFILE 1 Week D64.9 - Anemia, unspecified, E55.9 - Vitamin D deficiency, unspecified, R73.9 - Hyperglycemia, unspecified Magnesium 1 Week D64.9 - Anemia, unspecified, I10 - Essential (primary) hypertension Vitamin D 25-OH Total 1 Week D64.9 - Anemia, unspecified, I10 - Essential (primary) hypertension Basic Metabolic Panel 1 Week D64.9 - Anemia, unspecified, E55.9 - Vitamin D deficiency, unspecified, R73.9 - Hyperglycemia, unspecified Vitamin B12 and Folate 1 Week D64.9 - Anemia, unspecified, E55.9 - Vitamin D deficiency, unspecified, R73.9 - Hyperglycemia, unspecified Immunofixation Pnl, Serum 1 Week D64.9 - Anemia, unspecified, E55.9 - Vitamin D deficiency, unspecified, R73.9 - Hyperglycemia, unspecified C Reactive Protein 1 Week D64.9 - Anemia, unspecified, E55.9 - Vitamin D deficiency, unspecified, R73.9 - Hyperglycemia, unspecified Medications: New losartan 100 mg PO DAILY 90 tabs 0RF Discontinued losartan Discontinued Reason: Doctor's Order 50 mg PO DAILY 90 tabs 3RF Coding Level of Care Code Est Pt Prev Care >65y(46359) Diagnoses Hyperglycemia R73.9 Anemia D64.9 Vitamin D deficiency E55.9 HTN (hypertension) I10
== END 2023-05-27 09:54 | disposition home or self-care (01) ==
PROVIDERS: PCP Internal Medicine; Visit Provider Internal Medicine
DX: Z00.00 Encounter for general adult medical examination without abnormal findings (principal); R73.9 Hyperglycemia, unspecified; D64.9 Anemia, unspecified; E55.9 Vitamin D deficiency, unspecified; I10 Essential (primary) hypertension
CPT/HCPCS: 99397

== ENCOUNTER 2023-05-28 09:24 | Outpatient (AMB) | payer MEDICAID, SELFPAY ==
--- NOTE | 2023-05-28 09:34 | A.OFFVIS_ITS ---
Intake Vital Signs 05/28/23 09:42 Height 5 ft 3 in Weight 220 lb 7.396 oz BMI 39.0 BP 129/51 L Blood Pressure Location Lt brachial Position Sitting Pulse 73 Pulse Oximetry (%) 96 Intake Visit Reasons: 1 year follow up Intake Note: Patient is seen in office for follow up visit, possible repeat colonoscopy. Pt c/o: denies any concerns at the time of visit, here to have her colonoscopy rescheduled Safety And Security Officer Required: No Accompanied by: Family/Other Allergies No Known Allergies Allergy (Verified 05/28/23 09:44) Medication List - Last Reconciled 05/28/23 by Patricia Moya PA-C indapamide 1.25 mg PO QAM losartan 100 mg PO DAILY paroxetine HCl 10 mg PO DAILY potassium chloride ER 10 mEq PO DAILY HPI HPI Comments History of Present Illness Details A 72-year-old female follows up for discussion of polyp surveillance colonoscopy 09/07/2022 revealed tubulovillous adenoma as well as other tubular adenomas was recommended to repeat colonoscopy in 1 year. Appetite is very good- bowels are normal Here today with her daughter who interprets for her they declined translation device No nausea, vomiting, hematemesis, hematochezia fever chills PFSH Medical History (Updated 05/28/23 @ 09:58 by Patricia Moya PA-C) Tubulovillous adenoma of colon Elevated cholesterol Murmur HTN (hypertension) Anemia Surgical History Hx of colonoscopy Surgical history unknown Family History Father Colon cancer, Onset Age: 92 Mother Hypertension Stroke Social History Housing: House Patient Tobacco Use Status: Never used Tobacco e-Cigarette/Vaping Use: Never Used service: No Current occupational status: retired Cognitive needs: No Hearing needs: No Vision needs: Yes Review of Systems Const All systems reviewed & are unremarkable except as noted in HPI and below Card Denies chest pain and Denies dyspnea Resp Denies dyspnea GI Denies abdominal pain, Denies change in bowel habits, Denies nausea and Denies vomiting Physical Exam Vital Signs: Last Vital Signs Pulse 73 05/28/23 09:42 BP 129/51 L 05/28/23 09:42 Pulse Ox 96 05/28/23 09:42 BMI result Body Mass Index 39.0 Const General: cooperative, healthy appearing, comfortable and no acute distress Orientation/consciousness: patient oriented x3 Limitations: language barrier Eyes Sclerae: sclerae normal Resp Effort & Inspection: normal respiratory effort and able to speak in complete sentences Auscultation: clear to auscultation bilaterally, no rales, no rhonchi and no wheezes Cardio Rate: regular rate Rhythm: regular rhythm Heart sounds: S1 normal heart sound present, S2 normal heart sound present and no murmurs (No murmur appreciated) GI Palpation (GI): Soft to palpation and nontender Auscultation: normal bowel sounds Skin General skin exam: no rashes or lesions noted Neuro General: patient oriented x3 Extrem General: Yes full ROM Psych Appearance: grossly normal and well kempt Mental Status: mental status grossly normal Speech and movement: Normal speech and movement present and Clear speech present Affect: normal affect Attitude: cooperative Thought process: Normal thought process present Thought content: Normal thought content present Insight: Good insight present (Psych) Judgement: Good judgement present (Psych) Results Reviewed Results Reviewed: Plan: I will send a letter with pathology results Patient has an appointment on 10/24/22 in the [facility] with NUBIA Laughlin. Repeat Colonoscopy interval based on path results - in 2 years if polyps are adenomatous and 10 years if polyps are hyperplastic. Above findings were reviewed with the patient and colon polyps and diverticulosis handouts were given in the discharge area Name:?Rosalie Wong Age/Sex: 71/FAttending: Varun Cyr MD : 1950Submitted by: Varun Cyr MD to: Diamante Gunn MD MR #: [id number]? Status: DEP SDCCollected: 08/22/22 [facility] A.? Colon, ascending, polypectomies: - Tubular adenomata (2); negative for high-grade dysplasia or carcinoma. - Colonic mucosa with prominent lymphoid aggregates. B.? Colon, transverse, polypectomy:? Fragments of tubular adenoma; negative for high-grade dysplasia or carcinoma. C.? Colon, sigmoid, polypectomy:? Fragments of tubular adenoma; negative for high-grade dysplasia or carcinoma. D.? Colon, 30 cm, polypectomy:? Tubular adenoma; negative for high-grade dysplasia or carcinoma. E.? Rectum, polypectomy:? Tubulovillous adenoma; negative for high-grade dysplasia or carcinoma. Clinical History Pre-Op Dx:? Family HX of polyps Post-Op Dx: Colon polyps, hemorrhoids, diverticulosis Assessment & Plan Assessment & Plan (1) Hx of colonoscopy: Comment: 08/2022 Ger, multiple polyps, repeat 1 yr Code(s): Z98.890 - Other specified postprocedural states (2) Colon adenomas: Comment: Colon adenoma-large Code(s): D12.6 - Benign neoplasm of colon, unspecified (3) Tubulovillous adenoma of colon: Comment: 2022 Code(s): D12.6 - Benign neoplasm of colon, unspecified Plan due for 1 year repeat-polyp surveillance colonoscopy- MG- prep Dr. Cyr- Orders: Orders Colonoscopy - GI Use Only Today D12.6 - Benign neoplasm of colon, unspecified Medications: New bisacodyl (Dulcolax (bisacodyl)) Day before procedure, prep day Take 4 tablets by mouth upon awakening followed by large glass of water 20 mg (4 x 5 mg) PO ONCE 4 tabs 0RF colonoscopy prep 1 day Z12.11 - Encounter for screening for malignant neoplasm of colon polyethylene glycol 3350 (Miralax) Take as directed by mouth the day before your procedure. 238 grams PO ONCE PRN 238 grams 0RF laxative effect 1 day Patient Instructions: Very pleasant 72-year-old female history of tubulovillous adenoma due for 1 year repeat colonoscopy. She has no GI complaints Will be scheduled for polyp surveillance colonoscopy with Dr. Cyr Discussed procedure, rare risks need for escort MiraLax Gatorade prep reviewed literature given Encouraged to call questions or concerns Coding Level of Care Code Est Pt Level 3 (92849) Diagnoses Hx of colonoscopy Z98.890 Colon adenomas D12.6 Tubulovillous adenoma of colon D12.6 Time Spent (min) 25 Comment Safety And Security Officer, Daughter-declined manager pipeline device
[2023-05-28 09:42] VITALS: BP 129/51; PULSE 73; O2SAT 96; BMI 39.0
== END 2023-05-28 10:26 | disposition home or self-care (01) ==
PROVIDERS: PCP Internal Medicine; Visit Provider Physician Assistant
DX: Z98.890 Other specified postprocedural states (principal); D12.6 Benign neoplasm of colon, unspecified
CPT/HCPCS: 99213

== ENCOUNTER → 2023-05-28 09:24 | Outpatient (BNVA) | payer MEDICAID, SELFPAY | PROVIDERS: PCP Internal Medicine; Visit Provider Physician Assistant | DX: D12.6 Benign neoplasm of colon, unspecified (principal); Z98.890 Other specified postprocedural states | CPT/HCPCS: 99212 ==

== ENCOUNTER 2023-06-05 10:00 | Outpatient (REF) | payer MEDICAID, SELFPAY ==
[2023-06-05 13:57] LABS: Anion Gap 10 (12-20); Blood Urea Nitrogen 17 mg/dL (9-16); C Reactive Protein 0.34 mg/dL (< or = 0.50); Calcium 9.2 mg/dL (8.4-10.2); Carbon Dioxide 29 mmol/L (22-29); Chloride 107 mmol/L (96-108); Estimated Glomerular Filt Rate > 60; Glucose Random 113 mg/dL (60-115); Iron 73 mcg/dL (30-160); Magnesium 2.1 mg/dL (1.6-2.6); Percent Iron Saturation 28 % (15-50); Potassium 4.3 mmol/L (3.3-5.1); Sodium 142 mmol/L (135-145); Total Iron Binding Capacity 262 mcg/dL (228-428); Unsaturated Iron Binding 189 ug/dL
[2023-06-05 13:58] LABS: Vitamin D 25-OH Total 27.1 ng/mL (>30)
[2023-06-05 14:10] LABS: Folate 9.8 ng/mL (> or = 4.0); Vitamin B12 454 pg/mL (200-900)
[2023-06-09 14:42] LABS: IgA 102 mg/dL (70-320); IgG 980 mg/dL (600-1540); IgM 47 mg/dL (50-300)
== END 2023-06-05 10:01 | disposition home or self-care (01) ==
LOC: HO.HMGCLDS 10:00
PROVIDERS: PCP Internal Medicine; Visit Provider Internal Medicine
DX: R73.9 Hyperglycemia, unspecified (principal)
CPT/HCPCS: 36415; 80048; 82306; 82607; 82746; 82784; 83540; 83735; 86140; 86334

== ENCOUNTER 2023-06-19 11:01 | Outpatient (AMB) | payer MEDICAID, SELFPAY ==
[2023-06-19 11:04] VITALS: BP 136/64; PULSE 72; O2SAT 97; BMI 39.0
--- NOTE | 2023-06-19 11:04 | A.OFFPC_ITS ---
Vital Signs 06/19/23 11:04 Height 5 ft 3 in Weight 220 lb BMI 39.0 BP 136/64 Blood Pressure Location Lt brachial Position Sitting Pulse 72 Pulse Source Pulse Oximeter Pulse Oximetry (%) 97 Oxygen Delivery Method Room Air Intake Visit Reasons: 1M F/U per TYRELL Intake Note: Pt is here today for 1 month follow up visit. Allergies No Known Allergies Allergy (Verified 06/19/23 11:09) Medication List - Last Reconciled 06/19/23 by Diamante Gunn MD bisacodyl (Dulcolax (bisacodyl)) 20 mg (4 x 5 mg) PO ONCE 1 day indapamide 1.25 mg PO QAM losartan 100 mg PO DAILY paroxetine HCl 10 mg PO DAILY polyethylene glycol 3350 (Miralax) 238 grams PO ONCE PRN 1 day potassium chloride ER 10 mEq PO DAILY Tobacco use date assessed: 05/27/23 HPI 1M F/U per TYRELL HPI Details Pt presents for f/u HTN, stable on meds. She has been following low- cholesterol diet for hyperlipidemia PFSH Medical History Tubulovillous adenoma of colon Elevated cholesterol Murmur HTN (hypertension) Anemia Surgical History Hx of colonoscopy Surgical history unknown Family History Father Colon cancer, Onset Age: 92 Mother Hypertension Stroke Social History Housing: House Patient Tobacco Use Status: Never used Tobacco e-Cigarette/Vaping Use: Never Used service: No Current occupational status: retired Cognitive needs: No Hearing needs: No Vision needs: Yes Questionnaire Thrive Questionnaire Date Thrive assessed: 05/27/23 MADHURI-7 AMB Questionnaire MADHURI-7 Date MADHURI - 7 assessed: 05/27/23 Source: Developed by Drs. Niranjan Rivera, Daisy Dean, Herminio Herman and colleagues, with an educational sky from [facility] Review of Systems Const All systems reviewed & are unremarkable except as noted in HPI and below Reports no additional complaints Eyes Reports no additional complaints ENT Reports no additional complaints Card Reports no additional complaints Resp Reports no additional complaints GI Reports no additional complaints Reports no additional complaints Musc Reports no additional complaints Physical exam (Primary Care) Vital Signs: Last Vital Signs Pulse 72 06/19/23 11:04 BP 136/64 06/19/23 11:04 Pulse Ox 97 06/19/23 11:04 Oxygen Delivery Method Room Air 06/19/23 11:04 BMI result Body Mass Index 39.0 Tobacco/Smoking Status: Tobacco use Status Tobacco use date assessed 05/27/23 06/19/23 11:05 Patient Tobacco Use Status Never used Tobacco 06/19/23 11:05 e-Cigarette/Vaping Use Never Used 06/19/23 11:05 Thrive Assessment: Date of Thrive Assessment Date Thrive assessed 05/27/23 06/19/23 11:05 Const General: no acute distress HENMT Head: Yes normal to inspection Mouth: Normal oral and palatal mucosa present Throat: Yes posterior oropharynx normal Resp Effort & Inspection: normal respiratory effort Auscultation: clear to auscultation bilaterally Cardio Rhythm: regular rhythm Heart sounds: S1 normal heart sound present and S2 normal heart sound present GI Inspection: Yes normal to inspection Palpation (GI): Soft to palpation Percussion: Yes normal to percussion Assessment and Plan Assessment & Plan (1) HTN (hypertension): Code(s): I10 - Essential (primary) hypertension Plan: cont meds (2) Hyperlipidemia: Comment: Patient declined taking statin Code(s): E78.5 - Hyperlipidemia, unspecified Plan: Low-cholesterol diet increase physical activity weight loss discussed with the patient. She will try fish oil supplement and repeat lipid profile in 3 months (3) Hyperglycemia: Comment: A1c 5.9 03/12, A1C 5.9 06/14 Code(s): R73.9 - Hyperglycemia, unspecified Plan: ADA diet increase exercise weight loss discussed with the patient , check A1c in 3 months Orders: Orders Hemoglobin A1c 3 Months E78.5 - Hyperlipidemia, unspecified, I10 - Essential (primary) hypertension, R73.9 - Hyperglycemia, unspecified Comprehensive Dixon. Panel Fast 3 Months E78.5 - Hyperlipidemia, unspecified, I10 - Essential (primary) hypertension, R73.9 - Hyperglycemia, unspecified Lipid Panel 3 Months E78.5 - Hyperlipidemia, unspecified, I10 - Essential (primary) hypertension, R73.9 - Hyperglycemia, unspecified Coding Level of Care Code Est Pt Level 4 (69097) Diagnoses HTN (hypertension) I10 Hyperlipidemia E78.5 Hyperglycemia R73.9
== END 2023-06-19 11:44 | disposition home or self-care (01) ==
PROVIDERS: PCP Internal Medicine; Visit Provider Internal Medicine
DX: I10 Essential (primary) hypertension (principal); E78.5 Hyperlipidemia, unspecified; R73.9 Hyperglycemia, unspecified
CPT/HCPCS: 99214

== ENCOUNTER 2023-07-17 09:23 | Outpatient (AMB) | payer MEDICAID, SELFPAY ==
--- NOTE | 2023-07-17 09:24 | MHC.PC.OV ---
Vital Signs 07/17/23 09:25 Height 5 ft 3 in Weight 218 lb BMI 38.6 BP 110/74 Blood Pressure Location Lt brachial Position Sitting Pulse 78 Pulse Source Pulse Oximeter Pulse Oximetry (%) 97 Oxygen Delivery Method Room Air Intake Visit Reasons: ongoing cough Intake Note: Pt is here today for a sick visit. Pt c/o cough, low grade fever and wheezing, chest congestion for last 3 days. Allergies No Known Allergies Allergy (Verified 07/17/23 09:29) Medication List - Last Reconciled 07/17/23 by Diamante Gunn MD albuterol sulfate 90 mcg/actuation 2 puffs inhalation Q6H PRN bisacodyl (Dulcolax (bisacodyl)) 20 mg (4 x 5 mg) PO ONCE 1 day indapamide 1.25 mg PO QAM losartan 100 mg PO DAILY paroxetine HCl 10 mg PO DAILY polyethylene glycol 3350 (Miralax) 238 grams PO ONCE PRN 1 day potassium chloride ER 10 mEq PO DAILY Tobacco use date assessed: 05/27/23 HPI ongoing cough HPI Details Pt c/o nasal congestion, productive cough, low grade fever, some wheezing for 1 week. Patient is feeling better today. She denies pleurisy shortness of breath. HTN is stable on meds. [facility] Medical History Tubulovillous adenoma of colon Elevated cholesterol Murmur HTN (hypertension) Anemia Surgical History Hx of colonoscopy Surgical history unknown Family History Father Colon cancer, Onset Age: 92 Mother Hypertension Stroke Social History Housing: House Patient Tobacco Use Status: Never used Tobacco e-Cigarette/Vaping Use: Never Used service: No Current occupational status: retired Cognitive needs: No Hearing needs: No Vision needs: Yes Questionnaire Thrive Questionnaire Date Thrive assessed: 05/27/23 MADHURI-7 AMB Questionnaire MADHURI-7 Date MADHURI - 7 assessed: 05/27/23 Source: Developed by Drs. Niranjan Rivera, Daisy Dean, Herminio Herman and colleagues, with an educational sky from [employer]. Review of Systems Const All systems reviewed & are unremarkable except as noted in HPI and below Reports no additional complaints Eyes Reports no additional complaints ENT Reports no additional complaints Card Reports no additional complaints Resp Reports no additional complaints GI Reports no additional complaints Reports no additional complaints Physical exam (Primary Care) Vital Signs: Last Vital Signs Pulse 78 07/17/23 09:25 BP 110/74 07/17/23 09:25 Pulse Ox 97 07/17/23 09:25 Oxygen Delivery Method Room Air 07/17/23 09:25 BMI result Body Mass Index 38.6 Tobacco/Smoking Status: Tobacco use Status Tobacco use date assessed 05/27/23 07/17/23 09:30 Patient Tobacco Use Status Never used Tobacco 07/17/23 09:30 e-Cigarette/Vaping Use Never Used 07/17/23 09:30 Thrive Assessment: Date of Thrive Assessment Date Thrive assessed 05/27/23 07/17/23 09:30 Const General: no acute distress HENMT Head: Yes normal to inspection Ears: hearing grossly normal bilaterally Mouth: Normal oral and palatal mucosa present Throat: Yes posterior oropharynx normal Eyes General: appearance normal, both eyes and all related structures Neck Neck: Yes no lymphadenopathy and Yes supple Resp Effort & Inspection: normal respiratory effort Auscultation: wheezes Cardio Rhythm: regular rhythm Heart sounds: S1 normal heart sound present and S2 normal heart sound present Assessment and Plan Assessment & Plan (1) Upper respiratory infection: Code(s): J06.9 - Acute upper respiratory infection, unspecified Plan: Supportive care discussed with the patient at albuterol as needed Medications: New albuterol sulfate 90 mcg/actuation 2 puffs inhalation Q6H PRN 8.5 grams 0RF shortness of breath or wheezing Coding Level of Care Code Est Pt Level 3 (68003) Diagnoses Upper respiratory infection J06.9
[2023-07-17 09:25] VITALS: BP 110/74; PULSE 78; O2SAT 97; BMI 38.6
== END 2023-07-17 10:09 | disposition home or self-care (01) ==
PROVIDERS: PCP Internal Medicine; Visit Provider Internal Medicine
DX: J06.9 Acute upper respiratory infection, unspecified (principal)
CPT/HCPCS: 99213

== ENCOUNTER 2023-09-13 08:41 | Outpatient (REF) | payer MEDICAID, SELFPAY ==
[2023-09-13 11:32] LABS: Estimated Average Glucose 128 mg/dL; Hemoglobin A1c % 6.1 % (<6.0)
[2023-09-13 11:43] LABS: Alanine Aminotransferase 16 U/L (0-31); Albumin Level 4.1 g/dL (3.5-5.0); Alkaline Phosphatase 66 U/L (39-117); Anion Gap 11 (12-20); Aspartate Amino Transferase 17 U/L (5-31); Bilirubin Total 0.6 mg/dL (0.0-1.0); Blood Urea Nitrogen 17 mg/dL (9-16); Calcium 9.5 mg/dL (8.4-10.2); Carbon Dioxide 30 mmol/L (22-29); Chloride 104 mmol/L (96-108); Cholesterol 224 mg/dL (<200); Estimated Glomerular Filt Rate > 60; Glucose Fasting 133 mg/dL (60-99); HDL Cholesterol 47 mg/dL (>40); LDL Cholesterol Calculated 151 mg/dL (<100); Potassium 4.4 mmol/L (3.3-5.1); Sodium 141 mmol/L (135-145); Total Protein 6.8 g/dL (6.5-8.0); Triglycerides 130 mg/dL (<150)
== END 2023-09-13 08:42 | disposition home or self-care (01) ==
LOC: HO.HMGCLDS 08:41
PROVIDERS: PCP Internal Medicine; Visit Provider Internal Medicine
DX: I10 Essential (primary) hypertension (principal); E78.5 Hyperlipidemia, unspecified; R73.9 Hyperglycemia, unspecified
CPT/HCPCS: 36415; 80053; 80061; 83036

== ENCOUNTER 2023-09-17 10:55 | Outpatient (AMB) | payer MEDICAID, SELFPAY ==
[2023-09-17 10:56] VITALS: BP 124/60; PULSE 65; O2SAT 97; BMI 40.2
--- NOTE | 2023-09-17 10:56 | MHC.PC.OV ---
Vital Signs 09/17/23 10:56 Height 5 ft 3 in Weight 227 lb BMI 40.2 BP 124/60 Blood Pressure Location Lt brachial Position Sitting Pulse 65 Pulse Source Pulse Oximeter Pulse Oximetry (%) 97 Oxygen Delivery Method Room Air Intake Visit Reasons: 3 month follow up Intake Note: Pt is here today for 3 months follow up visit. Allergies Penicillins Allergy (Verified 09/17/23 10:59) Itching Medication List - Last Reconciled 09/17/23 by Diamante Gunn MD albuterol sulfate 90 mcg/actuation 2 puffs inhalation Q6H PRN bisacodyl (Dulcolax (bisacodyl)) 20 mg (4 x 5 mg) PO ONCE 1 day indapamide 1.25 mg PO QAM losartan 100 mg PO DAILY paroxetine HCl 10 mg PO DAILY polyethylene glycol 3350 (Miralax) 238 grams PO ONCE PRN 1 day potassium chloride ER 10 mEq PO DAILY Tobacco use date assessed: 09/17/23 Dental Screening Dental Screen Date: 05/27/23 HPI 3 month follow up HPI Details Pt presents up on hypertension, diet controlled hyperlipidemia and hyperglycemia. PFSH Medical History Tubulovillous adenoma of colon Elevated cholesterol Murmur HTN (hypertension) Anemia Surgical History Hx of colonoscopy Surgical history unknown Family History Father Colon cancer, Onset Age: 92 Mother Hypertension Stroke Social History Housing: House Patient Tobacco Use Status: Never used Tobacco e-Cigarette/Vaping Use: Never Used service: No Current occupational status: retired Cognitive needs: No Hearing needs: No Vision needs: Yes Questionnaire Thrive Questionnaire Date Thrive assessed: 05/27/23 MADHURI-7 AMB Questionnaire MADHURI-7 Date MADHURI - 7 assessed: 05/27/23 Source: Developed by Drs. Niranjan Rivera, Daisy Dean, Herminio Herman and colleagues, with an educational sky from [employer]. Review of Systems Const All systems reviewed & are unremarkable except as noted in HPI and below ENT Reports no additional complaints Card Reports no additional complaints Resp Reports no additional complaints GI Reports no additional complaints Reports no additional complaints Physical exam (Primary Care) Vital Signs: Last Vital Signs Pulse 65 09/17/23 10:56 BP 124/60 09/17/23 10:56 Pulse Ox 97 09/17/23 10:56 Oxygen Delivery Method Room Air 09/17/23 10:56 BMI result Body Mass Index 40.2 Tobacco/Smoking Status: Tobacco use Status Tobacco use date assessed 09/17/23 09/17/23 11:01 Patient Tobacco Use Status Never used Tobacco 09/17/23 11:01 e-Cigarette/Vaping Use Never Used 09/17/23 10:59 Thrive Assessment: Date of Thrive Assessment Date Thrive assessed 05/27/23 09/17/23 10:59 Const General: no acute distress HENMT Head: Yes normal to inspection Eyes General: appearance normal, both eyes and all related structures Neck Neck: Yes supple Resp Effort & Inspection: normal respiratory effort Auscultation: clear to auscultation bilaterally Cardio Rhythm: regular rhythm Heart sounds: S1 normal heart sound present and S2 normal heart sound present GI Inspection: Yes normal to inspection Palpation (GI): Soft to palpation Percussion: Yes normal to percussion Assessment and Plan Assessment & Plan (1) Postmenopausal: Code(s): Z78.0 - Asymptomatic menopausal state Plan: Check DEXA continue vitamin-D supplement (2) HTN (hypertension): Code(s): I10 - Essential (primary) hypertension Plan: Continue current medications (3) Hyperlipidemia: Comment: Patient declined taking statin Code(s): E78.5 - Hyperlipidemia, unspecified Plan: Continue low-cholesterol diet increase exercise weight loss discussed with the patient. Follow-up in 4 months with a fasting labs before. Patient declined medical treatment for hyperlipidemia (4) Hyperglycemia: Comment: A1c 5.9 03/12, A1C 5.9 06/14 Code(s): R73.9 - Hyperglycemia, unspecified Plan: A1c is 6.1, ADA diet increase exercise weight loss discussed with the patient follow-up in 4 months (5) Overweight: Code(s): E66.3 - Overweight Plan: Weight loss discussed with the patient Orders: Orders Comprehensive [place]. Panel Fast 4 Months E66.3 - Overweight, E78.5 - Hyperlipidemia, unspecified, I10 - Essential (primary) hypertension, R73.9 - Hyperglycemia, unspecified Complete Blood Count Auto Diff 4 Months E66.3 - Overweight, E78.5 - Hyperlipidemia, unspecified, I10 - Essential (primary) hypertension, R73.9 - Hyperglycemia, unspecified Vitamin B12 and Folate 4 Months E66.3 - Overweight, E78.5 - Hyperlipidemia, unspecified, I10 - Essential (primary) hypertension, R73.9 - Hyperglycemia, unspecified XR DEXA axial skeleton Today Z78.0 - Asymptomatic menopausal state Lipid Panel 4 Months E66.3 - Overweight, E78.5 - Hyperlipidemia, unspecified, I10 - Essential (primary) hypertension, R73.9 - Hyperglycemia, unspecified Hemoglobin A1c 4 Months E66.3 - Overweight, E78.5 - Hyperlipidemia, unspecified, I10 - Essential (primary) hypertension, R73.9 - Hyperglycemia, unspecified Vitamin D 25-OH Total 4 Months E66.3 - Overweight, E78.5 - Hyperlipidemia, unspecified, I10 - Essential (primary) hypertension, R73.9 - Hyperglycemia, unspecified Coding Level of Care Code Est Pt Level 4 (15145) Diagnoses Postmenopausal Z78.0 HTN (hypertension) I10 Hyperlipidemia E78.5 Hyperglycemia R73.9 Overweight E66.3
== END 2023-09-17 11:31 | disposition home or self-care (01) ==
PROVIDERS: PCP Internal Medicine; Visit Provider Internal Medicine
DX: I10 Essential (primary) hypertension (principal); Z78.0 Asymptomatic menopausal state; E66.01 Morbid (severe) obesity due to excess calories; Z68.41 Body mass index [BMI] 40.0-44.9, adult; E78.5 Hyperlipidemia, unspecified; R73.9 Hyperglycemia, unspecified
CPT/HCPCS: 99214

== ENCOUNTER 2023-10-31 09:48 | Day surgery (SDC) | payer MEDICAID, SELFPAY ==
--- NOTE | 2023-10-30 09:18 | P.CONAN_ITS ---
Documented by User: Linda Andre NP 10/30/23 09:20 HPI - Anesthesia Eval Consult details Narrative: 73yo F for Colonoscopy s/p colo 08/2022 with [facility] Active Problems Active Problems: All Active Problems Overweight (Acute) Postmenopausal (Acute) Upper respiratory infection (Acute) Tubulovillous adenoma of colon (Acute) Murmur (Acute) Hx of colonoscopy (Acute) Shoulder pain, right (Acute) Diverticulosis of colon (Acute) Colon adenomas (Acute) HTN (hypertension) (Acute) Hyperlipidemia (Acute) Hyperglycemia (Acute) Annual physical exam (Acute) Heart murmur (Acute) Anemia (Acute) Vitamin D deficiency (Acute) Positive colorectal cancer screening using Cologuard test (Acute) Family history of colon cancer in father (Acute) Past Medical History Medical History Tubulovillous adenoma of colon Elevated cholesterol Murmur HTN (hypertension) Anemia Family History Family History Father Colon cancer, Onset Age: 92 Mother Hypertension Stroke Family history of problems with anesthesia: No Surgical History Surgical History Hx of colonoscopy Surgical history unknown History of Problems with Anesthesia: Yes Social History Social History Housing: House Patient Tobacco Use Status: Never used Tobacco e-Cigarette/Vaping Use: Never Used Advance Directives: No Advance Directives Information Provided: Yes service: No Current occupational status: retired Cognitive needs: No Hearing needs: No Vision needs: Yes Meds Allergies Allergy/AdvReac Type Severity Reaction Status Date / Time Penicillins Allergy Itching Verified 10/31/23 10:13 Exam Pertinent Lab Results Pertinent Lab Results: Laboratory Tests 05/22/23 09/13/23 09:55 08:43 WBC 3.3 L Hgb 11.7 L Hct 35.0 L Plt Count 213 Sodium 141 Potassium 4.4 Chloride 104 Carbon Dioxide 30 H BUN 17 H Creatinine 0.84 Narrative Narrative: ECHO 2021 Conclusions: - The left ventricular systolic function is normal. The calculated ejection fraction is 67% by biplane method. - There is mild calcification of the aortic valve. - There is mild mitral annular calcification. There is mild mitral valve regurgitation. Assessment and Plan Assessment Anesthesia Assessment: Chart Reviewed Final Anesthetic Review Family History of Problems with Anesthesia: No History of Problems with Anesthesia: Yes Documented by User: Sophie Lang MD 10/31/23 10:32 [facility] Past Medical History Medical History Tubulovillous adenoma of colon Elevated cholesterol Murmur HTN (hypertension) Anemia Family History Family History Father Colon cancer, Onset Age: 92 Mother Hypertension Stroke Surgical History Surgical History Hx of colonoscopy Surgical history unknown Social History Social History Housing: House Patient Tobacco Use Status: Never used Tobacco e-Cigarette/Vaping Use: Never Used Advance Directives: No Advance Directives Information Provided: Yes service: No Current occupational status: retired Cognitive needs: No Hearing needs: No Vision needs: Yes Meds Allergies Allergy/AdvReac Type Severity Reaction Status Date / Time Penicillins Allergy Itching Verified 10/31/23 10:13 Exam Airway Mallampati Class: II TM Dist: >3cm Neck ROM: Full Denture: Upper and Lower Heart: rrr Lungs: cta Assessment and Plan Assessment Anesthesia Assessment: Anesthesia Plan Discussed Final Anesthetic Review NPO: Yes ASA Class: III Final Preanesthetic Review: No Changes in Pt Med Stat, Meds/Allgs Chart Reviewed and Consent Obtained/Reviewed Patient Risk: Low Procedure Risk: Low Anesthetic Plan Anesthetic Plan: MAC: Disposition: Standard PACU
--- NOTE | 2023-10-31 10:22 | MHC.SHP ---
Pre-Procedural Eval Section A - 24 Hr Update-Section A only Date of Service: 10/31/23 The patient is an INPATIENT: No The patient has been examined within 24 hours of the surgical procedure. The History & Physical has been completed within 30 days and I have reviewed it.: No Section B - Complete if H&P > 30 days Chief Complaint: Surveillance for colon polyps Relevant Family History (Specify if Yes): Yes Relevant Social History: None Present Medications: see Short Stay Collaborative assessment Medical History: Significant History (Tubulovillous adenoma of colon Elevated cholesterol Murmur HTN (hypertension) Anemia) History of Previous Operations: Relevant previous surgery/procedure and date(s) (Hx of colonoscopy Surgical history unknown) Allergies: Allergies Allergy/AdvReac Type Severity Reaction Status Date / Time Penicillins Allergy Itching Verified 10/31/23 10:13 Review of Systems Sugical H&P ROS: Negative: Constitution, Cardiovascular, Respiratory and Gastrointestinal Exam Surgical H&P Exam: Normal: Heart, Normal: Lungs, Normal: Extremities and Normal: Abdomen Plan Diagnosis/Plan: Unchanged I have reviewed the history and physical and performed a pertinent physical examination on my patient. No changes have occurred unless specified. Time Spent With Patient Time: Total time managing care of this patient today ____ minutes.
[2023-10-31 10:37] VITALS: BMI 37.4
[2023-10-31 10:38] VITALS: BP 160/83; PULSE 74; RESP 16; TEMP 36.8; O2SAT 96
[2023-10-31] MEDS: Lactated Ringers 1,000 ML 100 ML IVCONT (10:52)
--- NOTE | 2023-10-31 12:21 | HO.OPN-COLON ---
Colonoscopy Operative Note Operative Note Date of Service: 10/31/23 Narrative: COLONOSCOPY TILL CECUM WITH SNARE POLYPECTOMY Pre-op diagnosis: SURVEILLANCE FOR COLON POLYPS. Post-op diagnosis:? Colon polyps, Diverticulosis, hemorrhoids Endoscopist:? Varun Cyr MD Anesthesia:?MAC Consent: Indications for the procedure and potential complications of bleeding, perforation, reaction to medications and missed diagnosis were discussed with the patient and informed consent was obtained. Instrument: Olympus PCF H 190 L variable stiffness pediatric colonoscope Monitoring: Vital signs and clinical assessment, intermittent blood pressure monitoring, continuous EKG monitoring, Pulse oximetry and Carbon Dioxide monitoring were done throughout the procedure. Please see anesthesia flowsheet. Colon withdrawl time was 13 minutes. Procedure: The patient was placed in the left lateral decubitis position and pre-procedure medications were administered. After a digital rectal examination of the ano-rectum, the video colonoscope was inserted into the rectum and advanced through the colon to the cecum. The colonoscope was slowly withdrawn in a retrograde panoramic fashion and the colon mucosa was carefully examined including a retroflexed view of the rectum. Findings and interventions are described below. Procedure Difficulty: without difficulty Findings: Terminal Ileum: Not evaluated Cecum: Normal Ascending Colon: Two 5-6 mm sessile polyps - removed with a cold snare Transverse Colon: Normal Descending Colon: A 4-5 mm sessile polyp - removed with a cold snare Moderate diverticulosis Sigmoid Colon: Moderate diverticulosis Rectum: Normal Ano-rectum: Moderate internal hemorrhoids Colon preparation: Excellent, after some irrigation. [place] Bowel Preparation Scale Right colon; 3 Transverse colon: 3 Left colon; 3 (0 = Unprepared colon segment with mucosa not seen due to solid stool that cannot be cleared. 1 = Portion of mucosa of the colon segment seen, but other areas of the colon segment not well seen due to staining, residual stool and/or opaque liquid. 2 = Minor amount of residual staining, small fragments of stool and/or opaque liquid, but mucosa of colon segment seen well. 3 = Entire mucosa of colon segment seen well with no residual staining, small fragments of stool or opaque liquid) Impression and Post Procedure Diagnosis: Colonoscopy Findings: Three small polyps were removed Moderate diverticulosis seen in the left colon Moderate hemorrhoids on retroflexed exam. Plan: Pt has a FU appointment on 11/10/23 with NUBIA Ibarra, Repeat Colonoscopy in 3-5 years if polyps are adenomatous and 10 year if polyps are hyperplastic. Above findings were reviewed with the patient and relevant handouts were given and the discharge area.
[2023-10-31 12:23] VITALS: BP 118/46; PULSE 67; RESP 16; TEMP 37.1; O2SAT 97
[2023-10-31 12:38] VITALS: BP 146/71; PULSE 62; RESP 16; O2SAT 96
[2023-10-31 12:53] VITALS: BP 148/65; PULSE 63; RESP 18; TEMP 37; O2SAT 95
== END 2023-10-31 13:20 | disposition home or self-care (01) ==
PROVIDERS: PCP Internal Medicine; Visit Provider Internal Medicine Gastroenterology
PROC: 0DJD8ZZ Inspection of Lower Intestinal Tract, Via Natural or Artificial Opening Endoscopic (ICD-10-PCS; CPT 45378; principal; 2023-10-31 11:30)
DX: Z12.11 Encounter for screening for malignant neoplasm of colon (principal); D12.2 Benign neoplasm of ascending colon; K57.30 Diverticulosis of large intestine without perforation or abscess without bleeding; K64.8 Other hemorrhoids; Z86.010 Personal history of colon polyps; Z80.0 Family history of malignant neoplasm of digestive organs; I10 Essential (primary) hypertension; E78.5 Hyperlipidemia, unspecified; R73.9 Hyperglycemia, unspecified; D64.9 Anemia, unspecified; Z79.899 Other long term (current) drug therapy
CPT/HCPCS: 45385; 88305; J2704

== ENCOUNTER → 2023-10-31 09:48 | Outpatient (BNV) | payer MEDICAID, SELFPAY | PROVIDERS: PCP Internal Medicine; Visit Provider Internal Medicine Gastroenterology | DX: Z12.11 Encounter for screening for malignant neoplasm of colon (principal); Z86.010 Personal history of colon polyps; K63.5 Polyp of colon; K57.90 Diverticulosis of intestine, part unspecified, without perforation or abscess without bleeding | CPT/HCPCS: 45385 ==

== ENCOUNTER 2024-01-07 09:20 | Outpatient (REF) | payer MEDICAID, SELFPAY ==
[2024-01-07 13:12] LABS: MANUAL DIFF FLAG NO
[2024-01-07 13:18] LABS: Basophils Percent Auto 0.8 % (0-2); Eosinophils Absolute Auto 0.1 X10*3/uL (0.0-0.4); Eosinophils Percent Auto 2.2 % (0-4); Hematocrit 34.5 % (37.0-47.0); Hemoglobin 11.5 g/dl (12.0-16.0); Imm Gran Abs Auto 0.01 X10*3/uL (0.00-0.03); Imm Gran Pct Auto 0.3 % (0.0-0.4); Lymphocytes Absolute Auto 1.3 X10*3/uL (1.2-4.9); Lymphocytes Percent Auto 34.7 % (20-40); Mean Corpuscular HGB Conc 33.3 g/dl (31.0-35.0); Mean Corpuscular Hemoglobin 28.4 pg (27.0-33.0); Mean Corpuscular Volume 85.2 fL (80.0-98.0); Mean Platelet Volume 10.2 fL (9.4-12.3); Monocytes Absolute Auto 0.3 X10*3/uL (0.1-1.2); Monocytes Percent Auto 7.9 % (2-11); Neutrophils Percent Auto 54.1 % (45-73); Platelet Count 236 X10*3/uL (160-400); Red Blood Count 4.05 X10*6/uL (4.20-5.50); Red Cell Distribution Width 13.4 % (11.0-16.0); White Blood Count 3.7 X10*3/uL (4.8-10.8)
[2024-01-07 13:54] LABS: Estimated Average Glucose 126 mg/dL
[2024-01-07 14:20] LABS: Alanine Aminotransferase 28 U/L (0-31); Alkaline Phosphatase 70 U/L (39-117); Anion Gap 9 (12-20); Aspartate Amino Transferase 22 U/L (5-31); Bilirubin Total 0.6 mg/dL (0.0-1.0); Blood Urea Nitrogen 18 mg/dL (9-16); Calcium 9.4 mg/dL (8.4-10.2); Carbon Dioxide 29 mmol/L (22-29); Chloride 105 mmol/L (96-108); Cholesterol 237 mg/dL (<200); Estimated Glomerular Filt Rate > 60; Glucose Fasting 130 mg/dL (60-99); HDL Cholesterol 44 mg/dL (>40); LDL Cholesterol Calculated 161 mg/dL (<100); Potassium 3.8 mmol/L (3.3-5.1); Sodium 139 mmol/L (135-145); Total Protein 6.8 g/dL (6.5-8.0); Triglycerides 161 mg/dL (<150); Vitamin D 25-OH Total 36.5 ng/mL (>30)
[2024-01-07 14:28] LABS: Folate 10.3 ng/mL (> or = 4.0); Vitamin B12 381 pg/mL (200-900)
== END 2024-01-07 09:21 | disposition home or self-care (01) ==
LOC: HO.HMGCLDS 09:20
PROVIDERS: PCP Internal Medicine; Visit Provider Internal Medicine
DX: E78.5 Hyperlipidemia, unspecified (principal); R73.9 Hyperglycemia, unspecified; I10 Essential (primary) hypertension; E66.3 Overweight
CPT/HCPCS: 36415; 80053; 80061; 82306; 82607; 82746; 83036; 85025

== ENCOUNTER 2024-01-08 09:46 | Outpatient (AMB) | payer MEDICAID, SELFPAY ==
--- NOTE | 2024-01-08 09:48 | A.OFFPC_ITS ---
Vital Signs 01/08/24 09:49 Height 5 ft 4.57 in Weight 225 lb BMI 37.9 BP 118/64 Blood Pressure Location Lt brachial Position Sitting Pulse 66 Pulse Source Pulse Oximeter Pulse Oximetry (%) 96 Oxygen Delivery Method Room Air Intake Visit Reasons: Follow up Allergies Penicillins Allergy (Verified 01/08/24 10:19) Itching Tobacco use date assessed: 01/08/24 Dental Screening Dental Screen Date: 05/27/23 HPI Follow up HPI Details Patient presents for the follow-up of hypertension hyperlipidemia hyperglycemia diet controlled. [facility] Medical History Tubulovillous adenoma of colon Elevated cholesterol Murmur HTN (hypertension) Anemia Surgical History Hx of colonoscopy Surgical history unknown Family History Father Colon cancer, Onset Age: 92 Mother Hypertension Stroke Social History Housing: House Patient Tobacco Use Status: Never used Tobacco e-Cigarette/Vaping Use: Never Used service: No Current occupational status: retired Cognitive needs: No Hearing needs: No Vision needs: Yes Questionnaire Thrive Questionnaire Date Thrive assessed: 05/27/23 I am a: Patient What is your living situation today?: I have a steady place to live Within the past 12 months, did the food you bought not last and you didn't have the money to get more?: I choose not to answer this question Within the past 12 months, did you worry whether your food would run out before you got money to buy more?: I choose not to answer this question Do you have trouble paying for medicines?: No Do you have trouble getting transportation to medical appointments?: No Do you have trouble paying your heating and electricity bill?: No Do you have trouble taking care of your child, family member or friend?: No Do you have trouble with day-to-day activities such as bathing, preparing meals, shopping, managing finances, etc.?: No Are you interested in more education?: No Please select the resources that you would like help with: None Currently or been in a relationship where the following occur: I choose not to answer THRIVE Score: 0 AUDIT C Alcohol Use Questionnaire (AUDIT-C) 1. How often do you have a drink containing alcohol?: Never 3. How often do you have six or more drinks on one occasion?: Never Total Score: 0 MADHURI-7 AMB Questionnaire MADHURI-7 Date MADHURI - 7 assessed: 05/27/23 Feeling nervous, anxious, or on edge: 0 = Not at all Not being able to stop or control worryin = Not at all Worrying too much about different things: 0 = Not at all Trouble relaxin = Not at all Being so restless that it is hard to sit still: 0 = Not at all Becoming easily annoyed or irritable: 0 = Not at all Feeling afraid as if something awful might happen: 0 = Not at all Total MADHURI-7 score (0-4 normal; 5-9 mild; 10-14 moderate; 15-21 severe): 0 Source: Developed by Drs. Niranjan Rivera, Daisy Dean, Herminio Herman and colleagues, with an educational sky from [employer]. Review of Systems Const All systems reviewed & are unremarkable except as noted in HPI and below ENT Reports no additional complaints Card Reports no additional complaints Resp Reports no additional complaints GI Reports no additional complaints Physical exam (Primary Care) Vital Signs: Last Vital Signs Pulse 66 01/08/24 09:49 BP 118/64 01/08/24 09:49 Pulse Ox 96 01/08/24 09:49 Oxygen Delivery Method Room Air 01/08/24 09:49 BMI result Body Mass Index 37.9 Tobacco/Smoking Status: Tobacco use Status Tobacco use date assessed 01/08/24 01/08/24 10:23 Patient Tobacco Use Status Never used Tobacco 01/08/24 10:23 e-Cigarette/Vaping Use Never Used 01/08/24 09:49 Thrive Assessment: Date of Thrive Assessment Date Thrive assessed 05/27/23 01/08/24 09:49 Currently or been in a relationship where the following occur: I choose not to answer Const General: no acute distress HENMT Head: Yes normal to inspection Ears: hearing grossly normal bilaterally Face and sinus: Yes normal facial exam Throat: Yes posterior oropharynx normal Eyes General: appearance normal, both eyes and all related structures Neck Neck: Yes supple Resp Effort & Inspection: normal respiratory effort Auscultation: clear to auscultation bilaterally Cardio Rhythm: regular rhythm Heart sounds: S1 normal heart sound present and S2 normal heart sound present Assessment and Plan Assessment & Plan (1) Hyperlipidemia: Comment: Patient declined taking statin Code(s): E78.5 - Hyperlipidemia, unspecified Plan: Patient agreed to try pravastatin 20 mg a day. Continue low-cholesterol diet increase physical activity weight loss discussed with the patient check lipid profile in 2 and 6 months (2) Hyperglycemia: Comment: A1c 5.9 03/12, A1C 5.9 06/14 Code(s): R73.9 - Hyperglycemia, unspecified Plan: A1c is 6.0, ADA diet increase exercise weight loss discussed with the patient. Follow-up in 6 months (3) HTN (hypertension): Code(s): I10 - Essential (primary) hypertension Plan: Continue current medications Orders: Orders Lipid Panel 2 Months E78.5 - Hyperlipidemia, unspecified Hemoglobin A1c 6 Months E78.5 - Hyperlipidemia, unspecified, I10 - Essential (primary) hypertension, R73.9 - Hyperglycemia, unspecified Comprehensive [place]. Panel Fast 6 Months E78.5 - Hyperlipidemia, unspecified, I10 - Essential (primary) hypertension, R73.9 - Hyperglycemia, unspecified Lipid Panel 6 Months E78.5 - Hyperlipidemia, unspecified, I10 - Essential (primary) hypertension, R73.9 - Hyperglycemia, unspecified Complete Blood Count Auto Diff 6 Months E78.5 - Hyperlipidemia, unspecified, I10 - Essential (primary) hypertension, R73.9 - Hyperglycemia, unspecified Microalbumin, Random (w Creat) 6 Months E78.5 - Hyperlipidemia, unspecified, I10 - Essential (primary) hypertension, R73.9 - Hyperglycemia, unspecified Medications: New pravastatin 20 mg PO DAILY 90 tabs 3RF Coding Level of Care Code Est Pt Level 4 (52274) Diagnoses Hyperlipidemia E78.5 Hyperglycemia R73.9 HTN (hypertension) I10
[2024-01-08 09:49] VITALS: BP 118/64; PULSE 66; O2SAT 96; BMI 37.9
== END 2024-01-08 10:50 | disposition home or self-care (01) ==
PROVIDERS: PCP Internal Medicine; Visit Provider Internal Medicine
DX: E78.5 Hyperlipidemia, unspecified (principal); R73.9 Hyperglycemia, unspecified; I10 Essential (primary) hypertension

== ENCOUNTER → 2024-01-08 09:46 | Outpatient (BNVA) | payer MEDICAID, SELFPAY | PROVIDERS: PCP Internal Medicine; Visit Provider Internal Medicine | DX: E78.5 Hyperlipidemia, unspecified (principal); R73.9 Hyperglycemia, unspecified; I10 Essential (primary) hypertension | CPT/HCPCS: 99212 ==

== ENCOUNTER 2024-01-28 10:58 | Outpatient (REF) | payer MEDICAID, SELFPAY ==
--- NOTE | ~2024-01-28 | MM_ITS ---
EXAMINATION: MM SCREENING DIGITAL BREAST TOMOSYNTHESIS, BILATERAL CLINICAL INFORMATION: Screening. Asymptomatic. COMPARISON: Mammography: Comparison is made with available priors TECHNIQUE: Digital breast mammography with tomosynthesis is performed in both the craniocaudal and mediolateral oblique views along with computer-aided detection (CAD). FINDINGS: There are scattered areas of fibroglandular density (ACR BI-RADS breast composition Category b). There are no significant masses, abnormal calcifications, or other abnormalities. MM/MM tomosynthesis screening BI IMPRESSION: No mammographic evidence of malignancy. ASSESSMENT: BI-RADS BI-RADS 1 - Negative RECOMMENDATION: Routine annual mammography screening. 1 year F/U This examination should not preclude the clinical evaluation of a suspicious palpable abnormality. This patient's information was entered into a reminder system with a target due date for their next mammogram. Electronically signed by: Cathie Thurman DO 02/09/2024 05:58 PM EDT
== END 2024-01-28 10:59 | disposition home or self-care (01) ==
LOC: HO.MAMMO 10:58
PROVIDERS: PCP Internal Medicine; Visit Provider Internal Medicine
DX: Z12.31 Encounter for screening mammogram for malignant neoplasm of breast (principal)
CPT/HCPCS: 77063; 77067

== ENCOUNTER → 2024-01-28 11:15 | Outpatient (BNV) | payer MEDICAID, SELFPAY | PROVIDERS: PCP Internal Medicine; Visit Provider Internal Medicine | DX: Z12.31 Encounter for screening mammogram for malignant neoplasm of breast (principal) | CPT/HCPCS: 77063; 77067 ==

== ENCOUNTER 2024-03-25 09:29 | Outpatient (REF) | payer MEDICAID, SELFPAY ==
[2024-03-25 13:14] LABS: Cholesterol 202 mg/dL (<200); HDL Cholesterol 49 mg/dL (>40); LDL Cholesterol Calculated 129 mg/dL (<100); Triglycerides 123 mg/dL (<150)
== END 2024-03-25 09:30 | disposition home or self-care (01) ==
LOC: HO.HMGCLDS 09:29
PROVIDERS: PCP Internal Medicine; Visit Provider Internal Medicine
DX: E78.5 Hyperlipidemia, unspecified (principal)
CPT/HCPCS: 36415; 80061

== ENCOUNTER 2024-06-09 09:42 | Outpatient (REF) | payer MEDICAID, SELFPAY ==
[2024-06-09 13:19] LABS: MANUAL DIFF FLAG NO
[2024-06-09 13:41] LABS: Eosinophils Absolute Auto 0.1 X10*3/uL (0.0-0.4); Eosinophils Percent Auto 1.9 % (0-4); Hematocrit 36.8 % (37.0-47.0); Imm Gran Abs Auto 0.01 X10*3/uL (0.00-0.03); Imm Gran Pct Auto 0.2 % (0.0-0.4); Lymphocytes Absolute Auto 1.4 X10*3/uL (1.2-4.9); Lymphocytes Percent Auto 33.9 % (20-40); Mean Corpuscular HGB Conc 32.6 g/dl (31.0-35.0); Mean Corpuscular Volume 85.8 fL (80.0-98.0); Mean Platelet Volume 10.3 fL (9.4-12.3); Monocytes Absolute Auto 0.4 X10*3/uL (0.1-1.2); Monocytes Percent Auto 8.4 % (2-11); Neutrophils Absolute Auto 2.3 x10*3/uL (2.0-8.3); Neutrophils Percent Auto 54.6 % (45-73); Platelet Count 242 X10*3/uL (160-400); Red Blood Count 4.29 X10*6/uL (4.20-5.50); Red Cell Distribution Width 13.4 % (11.0-16.0); White Blood Count 4.2 X10*3/uL (4.8-10.8)
[2024-06-09 13:50] LABS: Estimated Average Glucose 126 mg/dL; Hemoglobin A1C 134.0537 umol/L
[2024-06-09 13:52] LABS: Alanine Aminotransferase 25 U/L (0-31); Albumin Level 4.3 g/dL (3.5-5.0); Alkaline Phosphatase 77 U/L (39-117); Anion Gap 10 (12-20); Aspartate Amino Transferase 27 U/L (5-31); Bilirubin Total 0.7 mg/dL (0.0-1.0); Blood Urea Nitrogen 21 mg/dL (9-16); Calcium 9.5 mg/dL (8.4-10.2); Carbon Dioxide 30 mmol/L (22-29); Chloride 106 mmol/L (96-108); Cholesterol 196 mg/dL (<200); Estimated Glomerular Filt Rate > 60; Glucose Fasting 119 mg/dL (60-99); HDL Cholesterol 51 mg/dL (>40); LDL Cholesterol Calculated 129 mg/dL (<100); Potassium 4.8 mmol/L (3.3-5.1); Sodium 141 mmol/L (135-145); Total Protein 7.4 g/dL (6.5-8.0); Triglycerides 80 mg/dL (<150)
[2024-06-09 14:22] LABS: Creatinine Urine 116.95 mg/dL; Microalbum/Creatinine Ratio Ur 5.1 ug/mg cr (<30)
== END 2024-06-09 09:43 | disposition home or self-care (01) ==
LOC: HO.HMGCLDS 09:42
PROVIDERS: PCP Internal Medicine; Visit Provider Internal Medicine
DX: I10 Essential (primary) hypertension (principal); E78.5 Hyperlipidemia, unspecified; R73.9 Hyperglycemia, unspecified
CPT/HCPCS: 36415; 80053; 80061; 82043; 82570; 83036; 85025

== ENCOUNTER 2024-06-10 11:22 | Outpatient (AMB) | payer MEDICAID, SELFPAY ==
[2024-06-10 11:25] VITALS: BP 124/50; PULSE 68; RESP 15; TEMP 36.4; O2SAT 98; BMI 38.6
--- NOTE | 2024-06-10 11:25 | MHC.PC.OV ---
Vital Signs 06/10/24 11:25 Height 5 ft 4.7 in Weight 230 lb BMI 38.6 BP 124/50 L Blood Pressure Location Lt brachial Position Sitting Respiration 15 Pulse 68 Pulse Source Pulse Oximeter Temp 97.5 F Temp Source Oral Pulse Oximetry (%) 98 Oxygen Delivery Method Room Air Intake Visit Reasons: Annual PE Allergies Penicillins Allergy (Verified 06/10/24 11:26) Itching Medication List - Last Reconciled 06/10/24 by Diamante Gunn MD albuterol sulfate 90 mcg/actuation 2 puffs inhalation Q6H PRN indapamide 1.25 mg PO QAM losartan 100 mg PO DAILY paroxetine HCl 10 mg PO DAILY potassium chloride ER 10 mEq PO DAILY pravastatin 20 mg PO DAILY Tobacco use date assessed: 06/10/24 Fall risk assessment: No Falls in past year Last assessed Fall Risk: 06/10/24 Dental Screening Dental Screen Date: 06/10/24 Did you have a dental visit in the last 12 months?: Yes Did you have a dental problem in the last 6 months where you did not have access to dental care?: No Was dental information given to patient?: Patient has dentist HPI Annual PE HPI Details Pt presents for PE. PFSH Medical History (Updated 06/10/24 @ 12:46 by Diamante Gunn MD) Tubulovillous adenoma of colon Elevated cholesterol Murmur HTN (hypertension) Anemia Surgical History (Updated 06/10/24 @ 12:46 by Diamante Gunn MD) Hx of colonoscopy Surgical history unknown Family History Father Colon cancer, Onset Age: 92 Mother Hypertension Stroke Social History Housing: House Patient Tobacco Use Status: Never used Tobacco e-Cigarette/Vaping Use: Never Used service: No Current occupational status: retired Cognitive needs: No Hearing needs: No Vision needs: Yes Questionnaire PHQ-9 Over the last 2 weeks, how often have you been bothered by any of the following problems? 1. Little interest or pleasure in doing things: not at all 2. Feeling down, depressed, or hopeless: not at all 3. Trouble falling or staying asleep, or sleeping too much: not at all 4. Feeling tired or having little energy: not at all 5. Poor appetite or overeating: not at all 6. Feeling bad about yourself - or that you are a failure or have let yourself or your family down: not at all 7. Trouble concentrating on things, such as reading the newspaper or watching television: not at all 8. Moving or speaking so slowly that other people could have noticed. Or the opposite - being so fidgety or restless that you have been moving around a lot more than usual: not at all 9. Thoughts that you would be better off or of hurting yourself in some way: not at all Total score: 0 Depression Screening Interpretation: Negative Depression Screening Done: Yes [id number] - PHQ-9 Billing: Yes Source: Developed by Drs. Niranjan Rivera, Daisy Dean, Herminio Herman and colleagues, with an educational sky from [employer]. Thrive Questionnaire Date Thrive assessed: 06/09/24 I am a: Patient What is your living situation today?: I have a steady place to live Within the past 12 months, did the food you bought not last and you didn't have the money to get more?: Never true Within the past 12 months, did you worry whether your food would run out before you got money to buy more?: Never true Do you have trouble paying for medicines?: No Do you have trouble getting transportation to medical appointments?: No Do you have trouble paying your heating and electricity bill?: No Do you have trouble taking care of your child, family member or friend?: No Do you have trouble with day-to-day activities such as bathing, preparing meals, shopping, managing finances, etc.?: No Are you currently unemployed and looking for a job?: No Are you interested in more education?: No Please select the resources that you would like help with: None Currently or been in a relationship where the following occur: No concerns reported THRIVE Score: 0 AUDIT C Alcohol Use Questionnaire (AUDIT-C) 1. How often do you have a drink containing alcohol?: Never 3. How often do you have six or more drinks on one occasion?: Never Total Score: 0 MADHURI-7 AMB Questionnaire MADHURI-7 Date MADHURI - 7 assessed: 06/10/24 Feeling nervous, anxious, or on edge: 0 = Not at all Not being able to stop or control worryin = Not at all Worrying too much about different things: 0 = Not at all Trouble relaxin = Not at all Being so restless that it is hard to sit still: 0 = Not at all Becoming easily annoyed or irritable: 0 = Not at all Feeling afraid as if something awful might happen: 0 = Not at all Total MADHURI-7 score (0-4 normal; 5-9 mild; 10-14 moderate; 15-21 severe): 0 Source: Developed by Drs. Niranjan Rivera, Daisy Dean, Herminio Herman and colleagues, with an educational sky from [employer]. Review of Systems Const All systems reviewed & are unremarkable except as noted in HPI and below Reports no additional complaints Eyes Reports no additional complaints ENT Reports no additional complaints Card Reports no additional complaints Resp Reports no additional complaints GI Reports no additional complaints Reports no additional complaints Musc Reports no additional complaints Physical exam (Primary Care) Vital Signs: Last Vital Signs Temp 97.5 F 06/10/24 11:25 Pulse 68 06/10/24 11:25 Resp 15 06/10/24 11:25 BP 124/50 L 06/10/24 11:25 Pulse Ox 98 06/10/24 11:25 Oxygen Delivery Method Room Air 06/10/24 11:25 BMI result Body Mass Index 38.6 Tobacco/Smoking Status: Tobacco use Status Tobacco use date assessed 06/10/24 06/10/24 11:30 Patient Tobacco Use Status Never used Tobacco 06/10/24 11:30 e-Cigarette/Vaping Use Never Used 06/10/24 11:30 PHQ-9: PHQ-9 Score PHQ-9: Total score 0 06/10/24 11:30 Depression Screening Interpretation: Negative Thrive Assessment: Date of Thrive Assessment Date Thrive assessed 06/09/24 06/10/24 11:30 Currently or been in a relationship where the following occur: No concerns reported Const General: no acute distress HENMT Head: Yes normal to inspection Ears: hearing grossly normal bilaterally Face and sinus: Yes normal facial exam Mouth: Normal oral and palatal mucosa present Throat: Yes posterior oropharynx normal Eyes General: appearance normal, both eyes and all related structures Neck Neck: Yes no lymphadenopathy and Yes supple Resp Effort & Inspection: normal respiratory effort Auscultation: clear to auscultation bilaterally Cardio Rhythm: regular rhythm Heart sounds: S1 normal heart sound present and S2 normal heart sound present GI Inspection: Yes normal to inspection Palpation (GI): Soft to palpation Percussion: Yes normal to percussion Auscultation: normal bowel sounds Coding Level of Care Code Est Pt Prev Care >65y(09719) Diagnoses HTN (hypertension) I10 Hyperlipidemia E78.5 Hyperglycemia R73.9 Annual physical exam Z00.00 Hx of colonoscopy Z98.890 Additional Codes PHQ-9 - 97893 - PHQ-9 Billing: Yes ([id number]) Assessment & Plan Assessment & Plan (1) HTN (hypertension): Code(s): I10 - Essential (primary) hypertension Category: Medical Plan: Continue current medication low-sodium diet increase physical activity (2) Hyperlipidemia: Code(s): E78.5 - Hyperlipidemia, unspecified Category: Medical Plan: Continue pravastatin (3) Hyperglycemia: Comment: A1c 5.9 03/12, A1C 5.9 06/14 Code(s): R73.9 - Hyperglycemia, unspecified Category: Medical Plan: A1c is 5.9, ADA diet regular exercise weight loss discussed with the patient (4) Annual physical exam: Code(s): Z00.00 - Encounter for general adult medical examination without abnormal findings Category: Medical Plan: Well-balanced diet regular physical activity weight loss discussed with the patient she is up-to-date with the mammogram colonoscopy. Follow-up in 6 months (5) Hx of colonoscopy: Comment: /08/2022 Ger, multiple polyps, repeat 1 yr, 10/2023 1 TA polyp, recheck 3 yrs, Code(s): Z98.890 - Other specified postprocedural states Category: Surgical Plan: Follow-up with GI Orders: Orders Comprehensive [place]. Panel Fast 6 Months E55.9 - Vitamin D deficiency, unspecified, I10 - Essential (primary) hypertension, R73.9 - Hyperglycemia, unspecified Complete Blood Count Auto Diff 6 Months E55.9 - Vitamin D deficiency, unspecified, I10 - Essential (primary) hypertension, R73.9 - Hyperglycemia, unspecified Lipid Panel 6 Months E55.9 - Vitamin D deficiency, unspecified, I10 - Essential (primary) hypertension, R73.9 - Hyperglycemia, unspecified Vitamin D 25-OH Total 6 Months E55.9 - Vitamin D deficiency, unspecified, I10 - Essential (primary) hypertension, R73.9 - Hyperglycemia, unspecified Hemoglobin A1c 6 Months E55.9 - Vitamin D deficiency, unspecified, I10 - Essential (primary) hypertension, R73.9 - Hyperglycemia, unspecified TSH reflex Free T4 6 Months E55.9 - Vitamin D deficiency, unspecified, I10 - Essential (primary) hypertension, R73.9 - Hyperglycemia, unspecified Medications: Refilled indapamide 1.25 mg PO QAM 90 tabs 3RF losartan 100 mg PO DAILY 90 tabs 3RF paroxetine HCl 10 mg PO DAILY 90 tabs 3RF potassium chloride ER 10 mEq PO DAILY 90 tabs 3RF pravastatin 20 mg PO DAILY 90 tabs 3RF
== END 2024-06-10 12:51 | disposition home or self-care (01) ==
PROVIDERS: PCP Internal Medicine; Visit Provider Internal Medicine
DX: I10 Essential (primary) hypertension (principal); E78.5 Hyperlipidemia, unspecified; R73.9 Hyperglycemia, unspecified; Z00.00 Encounter for general adult medical examination without abnormal findings; Z98.890 Other specified postprocedural states

== ENCOUNTER → 2024-06-10 11:22 | Outpatient (BNVA) | payer MEDICAID, SELFPAY | PROVIDERS: PCP Internal Medicine; Visit Provider Internal Medicine | DX: Z00.00 Encounter for general adult medical examination without abnormal findings (principal); I10 Essential (primary) hypertension; E78.5 Hyperlipidemia, unspecified; R73.9 Hyperglycemia, unspecified; Z98.890 Other specified postprocedural states | CPT/HCPCS: 96127; 99397 ==

== ENCOUNTER 2024-10-26 10:00 | Outpatient (AMB) | payer MEDICAID, SELFPAY ==
[2024-10-26 10:02] VITALS: BP 120/70; PULSE 80; RESP 18; TEMP 36.7; O2SAT 97; BMI 39.8
--- NOTE | 2024-10-26 10:02 | MHC.PC.OV ---
Vital Signs 10/26/24 10:02 Height 5 ft 4 in Weight 232 lb BMI 39.8 BP 120/70 Blood Pressure Location Lt brachial Position Sitting Respiration 18 Pulse 80 Pulse Source Pulse Oximeter Temp 98.0 F Temp Source Oral Pulse Oximetry (%) 97 Oxygen Delivery Method Room Air Intake Visit Reasons: muscle spasms and pain Intake Note: Pt is here today for a sick visit. Pt c/o muscle and joints pain for about a month. Allergies Penicillins Allergy (Verified 10/26/24 10:10) Itching Medication List - Last Reconciled 10/26/24 by iDamante Gunn MD albuterol sulfate 90 mcg/actuation 2 puffs inhalation Q6H PRN indapamide 1.25 mg PO QAM losartan 100 mg PO DAILY paroxetine HCl 10 mg PO DAILY potassium chloride ER 10 mEq PO DAILY pravastatin 20 mg PO DAILY Tobacco use date assessed: 10/26/24 Fall risk assessment: No Falls in past year Last assessed Fall Risk: 10/26/24 Dental Screening Dental Screen Date: 10/26/24 Did you have a dental visit in the last 12 months?: Yes Did you have a dental problem in the last 6 months where you did not have access to dental care?: No Was dental information given to patient?: Patient has dentist HPI muscle spasms and pain HPI Details Patient presents complaining of 1 month of arthralgia muscle cramps joint stiffness difficulty walking and feeling fatigued. She has been eating a lot of fruits and cheese. Patient denies fever chills cough GI or complaints, rash tick bite exposure, joint swelling or redness. Her symptoms resolved 2 days ago [facility] Medical History (Updated 10/26/24 @ 10:59 by Diamante Gunn MD) Arthralgia Anemia Overweight Hyperglycemia Hyperlipidemia Tubulovillous adenoma of colon Elevated cholesterol Murmur HTN (hypertension) Anemia Surgical History Hx of colonoscopy Surgical history unknown Family History Father Colon cancer, Onset Age: 92 Mother Hypertension Stroke Social History Housing: House Patient Tobacco Use Status: Never used Tobacco e-Cigarette/Vaping Use: Never Used service: No Current occupational status: retired Cognitive needs: No Hearing needs: No Vision needs: Yes Questionnaire PHQ-9 Over the last 2 weeks, how often have you been bothered by any of the following problems? 1. Little interest or pleasure in doing things: not at all 2. Feeling down, depressed, or hopeless: not at all 3. Trouble falling or staying asleep, or sleeping too much: not at all Source: Developed by Drs. Niranjan Rivera, Herminio Doran and colleagues, with an educational sky from [email or web address]. Thrive Questionnaire Date Thrive assessed: 06/09/24 I am a: Patient What is your living situation today?: I have a steady place to live Within the past 12 months, did the food you bought not last and you didn't have the money to get more?: Never true Within the past 12 months, did you worry whether your food would run out before you got money to buy more?: Never true Do you have trouble paying for medicines?: No Do you have trouble getting transportation to medical appointments?: No Do you have trouble paying your heating and electricity bill?: No Do you have trouble taking care of your child, family member or friend?: No Do you have trouble with day-to-day activities such as bathing, preparing meals, shopping, managing finances, etc.?: No Are you currently unemployed and looking for a job?: No Are you interested in more education?: No Please select the resources that you would like help with: None Currently or been in a relationship where the following occur: No concerns reported THRIVE Score: 0 MADHURI-7 AMB Questionnaire MADHURI-7 Date MADHURI - 7 assessed: 06/10/24 Source: Developed by Drs. Niranjan Rivera, Herminio Doran and colleagues, with an educational sky from [email or web address]. Review of Systems Const All systems reviewed & are unremarkable except as noted in HPI and below ENT Reports no additional complaints Card Reports no additional complaints Resp Reports no additional complaints GI Reports no additional complaints Reports no additional complaints Physical exam (Primary Care) Vital Signs: Last Vital Signs Temp 98.0 F 10/26/24 10:02 Pulse 80 10/26/24 10:02 Resp 18 10/26/24 10:02 BP 120/70 10/26/24 10:02 Pulse Ox 97 10/26/24 10:02 Oxygen Delivery Method Room Air 10/26/24 10:02 BMI result Body Mass Index 39.8 Tobacco/Smoking Status: Tobacco use Status Tobacco use date assessed 10/26/24 10/26/24 10:15 Patient Tobacco Use Status Never used Tobacco 10/26/24 10:03 e-Cigarette/Vaping Use Never Used 10/26/24 10:03 Thrive Assessment: Date of Thrive Assessment Date Thrive assessed 06/09/24 10/26/24 10:03 Currently or been in a relationship where the following occur: No concerns reported Const General: no acute distress HENMT Head: Yes normal to inspection Eyes General: appearance normal, both eyes and all related structures Neck Neck: Yes supple Resp Effort & Inspection: normal respiratory effort Auscultation: clear to auscultation bilaterally Cardio Rhythm: regular rhythm Heart sounds: S1 normal heart sound present and S2 normal heart sound present GI Inspection: Yes normal to inspection Palpation (GI): Soft to palpation Percussion: Yes normal to percussion Auscultation: normal bowel sounds Extrem Other: No joint tenderness erythema warmth General: Yes no clubbing, cyanosis or edema Coding Level of Care Code Est Pt Level 4 (05399) Complex EM visit Add On G2211 Diagnoses HTN (hypertension) I10 Hyperglycemia R73.9 Arthralgia M25.50 Assessment & Plan Assessment & Plan (1) HTN (hypertension): Code(s): I10 - Essential (primary) hypertension Category: Medical Plan: Continue current medications (2) Hyperglycemia: Comment: A1c 5.9 03/12, A1C 5.9 06/14 Code(s): R73.9 - Hyperglycemia, unspecified Category: Medical Plan: ADA diet increase exercise weight loss discussed with the patient check A1c today (3) Arthralgia: Code(s): M25.50 - Pain in unspecified joint Category: Medical Plan: Check blood work including arthritis panel. Patient was advised to stop pravastatin for few weeks to rule out her symptoms related to statin induced myalgia Orders: Orders Complete Blood Count Auto Diff Today E66.3 - Overweight, I10 - Essential (primary) hypertension, R73.9 - Hyperglycemia, unspecified Hemoglobin A1c Today E66.3 - Overweight, I10 - Essential (primary) hypertension, R73.9 - Hyperglycemia, unspecified C Reactive Protein Today E66.3 - Overweight, I10 - Essential (primary) hypertension, R73.9 - Hyperglycemia, unspecified Comprehensive Met. Panel Today E66.3 - Overweight, I10 - Essential (primary) hypertension, R73.9 - Hyperglycemia, unspecified Lyme IgG/IgM w/reflex to WB Today E66.3 - Overweight, I10 - Essential (primary) hypertension, R73.9 - Hyperglycemia, unspecified Rheumatoid Factor Today E66.3 - Overweight, I10 - Essential (primary) hypertension, R73.9 - Hyperglycemia, unspecified Cyclic Citrullinated Peptide Today E66.3 - Overweight, I10 - Essential (primary) hypertension, R73.9 - Hyperglycemia, unspecified Creatine Kinase Total Today E66.3 - Overweight, I10 - Essential (primary) hypertension, R73.9 - Hyperglycemia, unspecified
== END 2024-10-26 11:04 | disposition home or self-care (01) ==
LOC: HO.HMCC 10:01
PROVIDERS: PCP Internal Medicine; Visit Provider Internal Medicine
DX: I10 Essential (primary) hypertension (principal); R73.9 Hyperglycemia, unspecified; M25.50 Pain in unspecified joint

== ENCOUNTER 2024-10-26 10:00 | Outpatient (REF) | payer MEDICAID, SELFPAY ==
[2024-10-26 13:53] LABS: MANUAL DIFF FLAG NO
[2024-10-26 13:57] LABS: Hematocrit 35.3 % (37.0-47.0); Hemoglobin 11.5 g/dl (12.0-16.0); Imm Gran Abs Auto 0.01 X10*3/uL (0.00-0.03); Imm Gran Pct Auto 0.2 % (0.0-0.4); Lymphocytes Absolute Auto 1.3 X10*3/uL (1.2-4.9); Mean Corpuscular HGB Conc 32.6 g/dl (31.0-35.0); Mean Corpuscular Hemoglobin 27.8 pg (27.0-33.0); Mean Corpuscular Volume 85.3 fL (80.0-98.0); NRBC Abs Auto 0.000 X10*3/uL (0.0-0.012); NRBC Pct Auto 0.0 /100WBC (0.0-0.2); Platelet Count 237 X10*3/uL (160-400); Red Blood Count 4.14 X10*6/uL (4.20-5.50); White Blood Count 4.0 X10*3/uL (4.8-10.8)
[2024-10-26 14:19] LABS: Alanine Aminotransferase 19 U/L (0-31); Albumin Level 4.3 g/dL (3.5-5.0); Alkaline Phosphatase 73 U/L (39-117); Anion Gap 10 (12-20); Aspartate Amino Transferase 24 U/L (5-31); Blood Urea Nitrogen 17 mg/dL (9-16); Calcium 9.2 mg/dL (8.4-10.2); Carbon Dioxide 30 mmol/L (22-29); Chloride 105 mmol/L (96-108); Estimated Glomerular Filt Rate > 60; Hemoglobin A1C 135.3906 umol/L; Potassium 4.2 mmol/L (3.3-5.1); Sodium 141 mmol/L (135-145); Total Hemoglobin (HGBA1C) 3071.1352 umol/L; Total Protein 6.7 g/dL (6.5-8.0)
[2024-10-27 09:13] LABS: Lyme Abs Screen <0.90 index
== END 2024-10-26 10:01 | disposition home or self-care (01) ==
LOC: HO.HMGCLDS 10:00
PROVIDERS: PCP Internal Medicine; Visit Provider Internal Medicine
DX: I10 Essential (primary) hypertension (principal); R73.9 Hyperglycemia, unspecified; E66.3 Overweight; M62.838 Other muscle spasm; R53.83 Other fatigue; R26.2 Difficulty in walking, not elsewhere classified; M25.50 Pain in unspecified joint; Z68.39 Body mass index [BMI] 39.0-39.9, adult
CPT/HCPCS: 36415; 80053; 82550; 83036; 85025; 86140; 86200; 86431; 86617; 86618; 99212

== ENCOUNTER 2025-02-09 09:30 | Outpatient (REF) | payer MEDICAID, SELFPAY ==
[2025-02-09 13:02] LABS: MANUAL DIFF FLAG NO
[2025-02-09 13:13] LABS: Hematocrit 36.4 % (37.0-47.0); Hemoglobin 11.9 g/dl (12.0-16.0); Imm Gran Abs Auto 0.02 X10*3/uL (0.00-0.03); Imm Gran Pct Auto 0.5 % (0.0-0.4); Lymphocytes Absolute Auto 1.3 X10*3/uL (1.2-4.9); Mean Corpuscular HGB Conc 32.7 g/dl (31.0-35.0); Mean Corpuscular Hemoglobin 28.0 pg (27.0-33.0); Mean Corpuscular Volume 85.6 fL (80.0-98.0); NRBC Abs Auto 0.000 X10*3/uL (0.0-0.012); NRBC Pct Auto 0.0 /100WBC (0.0-0.2); Platelet Count 230 X10*3/uL (160-400); Red Blood Count 4.25 X10*6/uL (4.20-5.50); White Blood Count 4.0 X10*3/uL (4.8-10.8)
[2025-02-09 13:46] LABS: Alanine Aminotransferase 22 U/L (0-31); Albumin Level 4.5 g/dL (3.5-5.0); Alkaline Phosphatase 76 U/L (39-117); Anion Gap 10 (12-20); Aspartate Amino Transferase 27 U/L (5-31); Blood Urea Nitrogen 16 mg/dL (9-16); Calcium 9.3 mg/dL (8.4-10.2); Carbon Dioxide 31 mmol/L (22-29); Chloride 106 mmol/L (96-108); Cholesterol 201 mg/dL (<200); Estimated Glomerular Filt Rate > 60; HDL Cholesterol 48 mg/dL (>40); Potassium 4.6 mmol/L (3.3-5.1); Sodium 142 mmol/L (135-145); Total Protein 7.0 g/dL (6.5-8.0); Triglycerides 100 mg/dL (<150)
[2025-02-09 14:20] LABS: Microalbum/Creatinine Ratio Ur 10.5 ug/mg cr (<30)
== END 2025-02-09 09:31 | disposition home or self-care (01) ==
LOC: HO.HMGCLDS 09:30
PROVIDERS: PCP Internal Medicine; Visit Provider Internal Medicine
DX: I10 Essential (primary) hypertension (principal); E78.5 Hyperlipidemia, unspecified; R73.9 Hyperglycemia, unspecified; E55.9 Vitamin D deficiency, unspecified
CPT/HCPCS: 36415; 80053; 80061; 82043; 82306; 82570; 83036; 84443; 85025

== ENCOUNTER 2025-02-11 11:13 | Outpatient (AMB) | payer MEDICAID, SELFPAY ==
[2025-02-11 11:16] VITALS: BP 120/66; PULSE 73; RESP 19; TEMP 36.8; O2SAT 98; BMI 40.5
--- NOTE | 2025-02-11 11:16 | A.OFFPC_ITS ---
Vital Signs 02/11/25 11:16 Height 5 ft 4 in Weight 236 lb BMI 40.5 BP 120/66 Blood Pressure Location Lt brachial Position Sitting Respiration 19 Pulse 73 Pulse Source Pulse Oximeter Temp 98.2 F Temp Source Oral Pulse Oximetry (%) 98 Oxygen Delivery Method Room Air Intake Visit Reasons: Follow up on labs. Intake Note: Pt is here today for a follow up visit on labs. Allergies Penicillins Allergy (Verified 02/11/25 11:23) Itching Medication List - Last Reconciled 02/11/25 by Diamante Gunn MD albuterol sulfate 90 mcg/actuation 2 puffs inhalation Q6H PRN indapamide 1.25 mg PO QAM losartan 100 mg PO DAILY paroxetine HCl 10 mg PO DAILY potassium chloride ER 10 mEq PO DAILY pravastatin 20 mg PO DAILY Tobacco use date assessed: 02/11/25 Fall risk assessment: No Falls in past year Last assessed Fall Risk: 02/11/25 Dental Screening Dental Screen Date: 10/26/24 HPI Follow up on labs. HPI Details Patient presents for the follow-up of hypertension and hyperlipidemia. Patient gained 16 lb in the last few months eating more caloric foods including sweets. She has not been physically active as in the past. PFSH Medical History Arthralgia Anemia Overweight Hyperglycemia Hyperlipidemia Tubulovillous adenoma of colon Elevated cholesterol Murmur HTN (hypertension) Anemia Surgical History Hx of colonoscopy Surgical history unknown Family History Father Colon cancer, Onset Age: 92 Mother Hypertension Stroke Social History Housing: House Patient Tobacco Use Status: Never used Tobacco e-Cigarette/Vaping Use: Never Used service: No Current occupational status: retired Cognitive needs: No Hearing needs: No Vision needs: Yes Questionnaire Thrive Questionnaire Date Thrive assessed: 06/09/24 I am a: Patient What is your living situation today?: I have a steady place to live Within the past 12 months, did the food you bought not last and you didn't have the money to get more?: Never true Within the past 12 months, did you worry whether your food would run out before you got money to buy more?: Never true Do you have trouble paying for medicines?: No Do you have trouble getting transportation to medical appointments?: No Do you have trouble paying your heating and electricity bill?: No Do you have trouble taking care of your child, family member or friend?: No Do you have trouble with day-to-day activities such as bathing, preparing meals, shopping, managing finances, etc.?: No Are you currently unemployed and looking for a job?: No Are you interested in more education?: No Please select the resources that you would like help with: None Currently or been in a relationship where the following occur: No concerns reported THRIVE Score: 0 AUDIT C Alcohol Use Questionnaire (AUDIT-C) 1. How often do you have a drink containing alcohol?: Never 3. How often do you have six or more drinks on one occasion?: Never Total Score: 0 MADHURI-7 AMB Questionnaire MADHURI-7 Date MADHURI - 7 assessed: 06/10/24 Source: Developed by Drs. Niranjan Rivera, Daisy Dean, Herminio Herman and colleagues, with an educational sky from [employer] Review of Systems Const All systems reviewed & are unremarkable except as noted in HPI and below ENT Reports no additional complaints Card Reports no additional complaints Resp Reports no additional complaints GI Reports no additional complaints Reports no additional complaints Physical exam (Primary Care) Vital Signs: Last Vital Signs Temp 98.2 F 02/11/25 11:16 Pulse 73 02/11/25 11:16 Resp 19 02/11/25 11:16 BP 120/66 02/11/25 11:16 Pulse Ox 98 02/11/25 11:16 Oxygen Delivery Method Room Air 02/11/25 11:16 BMI result Body Mass Index 40.5 Tobacco/Smoking Status: Tobacco use Status Tobacco use date assessed 02/11/25 02/11/25 11:32 Patient Tobacco Use Status Never used Tobacco 02/11/25 11:17 e-Cigarette/Vaping Use Never Used 02/11/25 11:17 Thrive Assessment: Date of Thrive Assessment Date Thrive assessed 06/09/24 02/11/25 11:17 Currently or been in a relationship where the following occur: No concerns reported Const General: no acute distress HENMT Head: Yes normal to inspection Face and sinus: Yes normal facial exam Throat: Yes posterior oropharynx normal Eyes General: appearance normal, both eyes and all related structures Neck Neck: Yes supple Resp Effort & Inspection: normal respiratory effort Auscultation: clear to auscultation bilaterally Cardio Rhythm: regular rhythm Heart sounds: S1 normal heart sound present and S2 normal heart sound present GI Inspection: Yes normal to inspection Palpation (GI): Soft to palpation Percussion: Yes normal to percussion Auscultation: normal bowel sounds Coding Level of Care Code Est Pt Level 4 (58257) Diagnoses HTN (hypertension) I10 Hyperlipidemia E78.5 Overweight E66.3 Hyperglycemia R73.9 Assessment & Plan Assessment & Plan (1) HTN (hypertension): Code(s): I10 - Essential (primary) hypertension Category: Medical Plan: Continue current medications (2) Hyperlipidemia: Code(s): E78.5 - Hyperlipidemia, unspecified Category: Medical Plan: Continue statin (3) Overweight: Comment: BMI 40.5 Code(s): E66.3 - Overweight Category: Medical Plan: Decreasing caloric intake increasing physical activity discussed with the patient (4) Hyperglycemia: Comment: A1c 5.9 03/12, A1C 5.9 06/14 Code(s): R73.9 - Hyperglycemia, unspecified Category: Medical Plan: A1c is 6.4. ADA diet regular exercise weight loss discussed with the patient follow-up in 3 months with a fasting labs before
== END 2025-02-11 11:58 | disposition home or self-care (01) ==
LOC: HO.HMCC 11:14
PROVIDERS: PCP Internal Medicine; Visit Provider Internal Medicine
DX: I10 Essential (primary) hypertension (principal); E78.5 Hyperlipidemia, unspecified; E66.3 Overweight; R73.9 Hyperglycemia, unspecified

== ENCOUNTER → 2025-02-11 11:13 | Outpatient (BNVA) | payer MEDICAID, SELFPAY | PROVIDERS: PCP Internal Medicine; Visit Provider Internal Medicine | DX: I10 Essential (primary) hypertension (principal); E78.5 Hyperlipidemia, unspecified; E66.3 Overweight; R73.9 Hyperglycemia, unspecified | CPT/HCPCS: 99212 ==

== ENCOUNTER 2025-03-11 13:12 | Outpatient (REF) | payer MEDICAID, SELFPAY ==
[2025-03-11 16:39] LABS: Anion Gap 10 (12-20); Blood Urea Nitrogen 17 mg/dL (9-16); Calcium 9.2 mg/dL (8.4-10.2); Carbon Dioxide 31 mmol/L (22-29); Chloride 104 mmol/L (96-108); Estimated Glomerular Filt Rate > 60; Potassium 4.3 mmol/L (3.3-5.1); Sodium 141 mmol/L (135-145)
== END 2025-03-11 13:13 | disposition home or self-care (01) ==
LOC: HO.HMGCLDS 13:12
PROVIDERS: PCP Internal Medicine; Visit Provider Internal Medicine
DX: I10 Essential (primary) hypertension (principal); R73.9 Hyperglycemia, unspecified; E78.5 Hyperlipidemia, unspecified; Z79.899 Other long term (current) drug therapy
CPT/HCPCS: 36415; 80048; 99212

== ENCOUNTER 2025-03-11 13:12 | Outpatient (AMB) | payer MEDICAID, SELFPAY ==
[2025-03-11 13:12] VITALS: BP 156/64; PULSE 70; O2SAT 98; BMI 40.3
--- NOTE | 2025-03-11 13:12 | MHC.PC.OV ---
Vital Signs 03/11/25 13:12 03/11/25 13:13 Height 5 ft 4 in Weight 235 lb BMI 40.3 BP 156/64 H 140/62 H Blood Pressure Location Lt brachial Rt brachial Position Sitting Sitting Pulse 70 Pulse Source Pulse Oximeter Pulse Oximetry (%) 98 Oxygen Delivery Method Room Air Intake Visit Reasons: Elevated BP Intake Note: Pt is here today for a sick visit. Pt c/o elevated blood pressure. Allergies Penicillins Allergy (Verified 03/11/25 13:13) Itching Medication List - Last Reconciled 03/11/25 by Diamante Gunn MD albuterol sulfate 90 mcg/actuation 2 puffs inhalation Q6H PRN indapamide 1.25 mg PO QAM paroxetine HCl 10 mg PO DAILY potassium chloride ER 10 mEq PO DAILY pravastatin 20 mg PO DAILY valsartan 320 mg PO DAILY Tobacco use date assessed: 02/11/25 Fall risk assessment: No Falls in past year Last assessed Fall Risk: 03/11/25 Dental Screening Dental Screen Date: 10/26/24 HPI Elevated BP HPI Details Patient presents complaining of increase blood pressure for the last few days with the readings up to 180/90 at home. She has been compliant taking her medications. Patient has been taking her blood pressure multiple times and becoming anxious about high readings. She denies chest pain shortness or breath or headaches. PFSH Medical History Arthralgia Anemia Overweight Hyperglycemia Hyperlipidemia Tubulovillous adenoma of colon Elevated cholesterol Murmur HTN (hypertension) Anemia Surgical History Hx of colonoscopy Surgical history unknown Family History Father Colon cancer, Onset Age: 92 Mother Hypertension Stroke Social History Housing: House Patient Tobacco Use Status: Never used Tobacco e-Cigarette/Vaping Use: Never Used service: No Current occupational status: retired Cognitive needs: No Hearing needs: No Vision needs: Yes Questionnaire Thrive Questionnaire Date Thrive assessed: 06/09/24 MADHURI-7 AMB Questionnaire MADHURI-7 Date MADHURI - 7 assessed: 06/10/24 Source: Developed by Drs. Niranjan Rivera, Daisy Dean, Herminio Herman and colleagues, with an educational sky from [employer]. Review of Systems Const All systems reviewed & are unremarkable except as noted in HPI and below Eyes Reports no additional complaints ENT Reports no additional complaints Card Reports no additional complaints Resp Reports no additional complaints GI Reports no additional complaints Reports no additional complaints Physical exam (Primary Care) Vital Signs: Last Vital Signs Pulse 70 03/11/25 13:12 BP 140/62 H 03/11/25 13:13 Pulse Ox 98 03/11/25 13:12 Oxygen Delivery Method Room Air 03/11/25 13:12 BMI result Body Mass Index 40.3 Tobacco/Smoking Status: Tobacco use Status Tobacco use date assessed 02/11/25 03/11/25 13:14 Patient Tobacco Use Status Never used Tobacco 03/11/25 13:14 e-Cigarette/Vaping Use Never Used 03/11/25 13:14 Thrive Assessment: Date of Thrive Assessment Date Thrive assessed 06/09/24 03/11/25 13:14 Const General: no acute distress HENMT Head: Yes normal to inspection Mouth: Normal oral and palatal mucosa present Eyes General: appearance normal, both eyes and all related structures Neck Neck: Yes supple Resp Effort & Inspection: normal respiratory effort Auscultation: clear to auscultation bilaterally Cardio Rhythm: regular rhythm Heart sounds: S1 normal heart sound present and S2 normal heart sound present GI Inspection: Yes normal to inspection Palpation (GI): Soft to palpation Percussion: Yes normal to percussion Coding Level of Care Code Complex visit Add On G2211 Diagnoses HTN (hypertension) I10 Hyperglycemia R73.9 Hyperlipidemia E78.5 Assessment & Plan Assessment & Plan (1) HTN (hypertension): Code(s): I10 - Essential (primary) hypertension Category: Medical Plan: change Losartan to Valsartan 320 mg and cont Indapamide , check BMP today off KCl supplement (2) Hyperglycemia: Comment: A1c 5.9 03/12, A1C 5.9 06/14 Code(s): R73.9 - Hyperglycemia, unspecified Category: Medical Plan: A1C 6.4 ADA diet, regular exercise and weight discussed, (3) Hyperlipidemia: Code(s): E78.5 - Hyperlipidemia, unspecified Category: Medical Plan: cont statin Orders: Orders Basic Metabolic Panel Today I10 - Essential (primary) hypertension Medications: New valsartan 320 mg PO DAILY 90 tabs 0RF Discontinued losartan Discontinued Reason: Doctor's Order 100 mg PO DAILY 90 tabs 3RF
[2025-03-11 13:13] VITALS: BP 140/62
== END 2025-03-11 15:52 | disposition home or self-care (01) ==
LOC: HO.HMCC 13:12
PROVIDERS: PCP Internal Medicine; Visit Provider Internal Medicine
DX: I10 Essential (primary) hypertension (principal); R73.9 Hyperglycemia, unspecified; E78.5 Hyperlipidemia, unspecified

== ENCOUNTER 2025-03-28 13:46 | Outpatient (AMB) | payer MEDICAID, SELFPAY ==
--- NOTE | 2025-03-28 13:58 | MHC.PC.OV ---
Vital Signs 03/28/25 13:59 Height 5 ft 4 in Weight 235 lb BMI 40.3 BP 124/62 Blood Pressure Location Lt brachial Position Sitting Respiration 18 Pulse 79 Pulse Source Pulse Oximeter Pulse Oximetry (%) 97 Oxygen Delivery Method Room Air Intake Visit Reasons: 1 mo follow up Intake Note: Pt is here today for 1 month follow up visit. Allergies Penicillins Allergy (Verified 03/28/25 14:03) Itching Medication List - Last Reconciled 03/28/25 by Diamante Gunn MD albuterol sulfate 90 mcg/actuation 2 puffs inhalation Q6H PRN indapamide 1.25 mg PO QAM losartan 100 mg PO DAILY paroxetine HCl 10 mg PO DAILY potassium chloride ER 10 mEq PO DAILY pravastatin 20 mg PO DAILY Tobacco use date assessed: 02/11/25 Fall risk assessment: No Falls in past year Last assessed Fall Risk: 03/28/25 Dental Screening Dental Screen Date: 10/26/24 HPI 1 mo follow up HPI Details Pt presents for f/u HTN, hyperlipid, chronic anxiety, stable on meds. Patient did not change losartan to valsartan because her blood pressure has been well controlled at home. She has been decreasing caloric intake trying to lose weight and has been more physically active, walking up to twice a week. [facility] Medical History Arthralgia Anemia Overweight Hyperglycemia Hyperlipidemia Tubulovillous adenoma of colon Elevated cholesterol Murmur HTN (hypertension) Anemia Surgical History Hx of colonoscopy Surgical history unknown Family History Father Colon cancer, Onset Age: 92 Mother Hypertension Stroke Social History Housing: House Patient Tobacco Use Status: Never used Tobacco e-Cigarette/Vaping Use: Never Used service: No Current occupational status: retired Cognitive needs: No Hearing needs: No Vision needs: Yes Questionnaire Thrive Questionnaire Date Thrive assessed: 06/09/24 I am a: Patient What is your living situation today?: I have a steady place to live Within the past 12 months, did the food you bought not last and you didn't have the money to get more?: Never true Within the past 12 months, did you worry whether your food would run out before you got money to buy more?: Never true Do you have trouble paying for medicines?: No Do you have trouble getting transportation to medical appointments?: No Do you have trouble paying your heating and electricity bill?: No Do you have trouble taking care of your child, family member or friend?: No Do you have trouble with day-to-day activities such as bathing, preparing meals, shopping, managing finances, etc.?: No Are you currently unemployed and looking for a job?: No Are you interested in more education?: No Please select the resources that you would like help with: None Currently or been in a relationship where the following occur: No concerns reported THRIVE Score: 0 MADHURI-7 AMB Questionnaire MADHURI-7 Date MADHURI - 7 assessed: 06/10/24 Source: Developed by Drs. Niranjan Rivera, Daisy Dean, Herminio Herman and colleagues, with an educational sky from [employer]. Review of Systems Const All systems reviewed & are unremarkable except as noted in HPI and below Eyes Reports no additional complaints Card Reports no additional complaints Resp Reports no additional complaints GI Reports no additional complaints Reports no additional complaints Physical exam (Primary Care) Vital Signs: Last Vital Signs Pulse 79 03/28/25 13:59 Resp 18 03/28/25 13:59 BP 124/62 03/28/25 13:59 Pulse Ox 97 03/28/25 13:59 Oxygen Delivery Method Room Air 03/28/25 13:59 BMI result Body Mass Index 40.3 Tobacco/Smoking Status: Tobacco use Status Tobacco use date assessed 02/11/25 03/28/25 13:59 Patient Tobacco Use Status Never used Tobacco 03/28/25 13:59 e-Cigarette/Vaping Use Never Used 03/28/25 13:59 Thrive Assessment: Date of Thrive Assessment Date Thrive assessed 06/09/24 03/28/25 13:59 Currently or been in a relationship where the following occur: No concerns reported Const General: no acute distress HENMT Head: Yes normal to inspection Eyes General: appearance normal, both eyes and all related structures Resp Effort & Inspection: normal respiratory effort Auscultation: clear to auscultation bilaterally Cardio Rhythm: regular rhythm Heart sounds: S1 normal heart sound present and S2 normal heart sound present GI Inspection: Yes normal to inspection Palpation (GI): Soft to palpation Percussion: Yes normal to percussion Auscultation: normal bowel sounds Coding Level of Care Code Est Pt Level 4 (93852) Diagnoses HTN (hypertension) I10 Hyperlipidemia E78.5 Hyperglycemia R73.9 Assessment & Plan Assessment & Plan (1) HTN (hypertension): Code(s): I10 - Essential (primary) hypertension Category: Medical Plan: Continue current medication low-sodium diet increase physical activity weight loss discussed with the patient. She will return in 2 months with a fasting labs before (2) Hyperlipidemia: Code(s): E78.5 - Hyperlipidemia, unspecified Category: Medical Plan: Continue statin (3) Hyperglycemia: Comment: A1c 5.9 03/12, A1C 5.9 06/14 Code(s): R73.9 - Hyperglycemia, unspecified Category: Medical Plan: ADA diet regular exercise weight loss discussed with the patient Orders: Orders Comprehensive [place]. Panel Fast 2 Months E55.9 - Vitamin D deficiency, unspecified, E78.5 - Hyperlipidemia, unspecified, I10 - Essential (primary) hypertension, R73.9 - Hyperglycemia, unspecified Complete Blood Count Auto Diff 2 Months E55.9 - Vitamin D deficiency, unspecified, E78.5 - Hyperlipidemia, unspecified, I10 - Essential (primary) hypertension, R73.9 - Hyperglycemia, unspecified Magnesium 2 Months E55.9 - Vitamin D deficiency, unspecified, E78.5 - Hyperlipidemia, unspecified, I10 - Essential (primary) hypertension, R73.9 - Hyperglycemia, unspecified Microalbumin, Random (w Creat) 2 Months E55.9 - Vitamin D deficiency, unspecified, E78.5 - Hyperlipidemia, unspecified, I10 - Essential (primary) hypertension, R73.9 - Hyperglycemia, unspecified Hemoglobin A1c 2 Months E55.9 - Vitamin D deficiency, unspecified, E78.5 - Hyperlipidemia, unspecified, I10 - Essential (primary) hypertension, R73.9 - Hyperglycemia, unspecified Lipid Panel 2 Months E55.9 - Vitamin D deficiency, unspecified, E78.5 - Hyperlipidemia, unspecified, I10 - Essential (primary) hypertension, R73.9 - Hyperglycemia, unspecified Medications: New losartan 100 mg PO DAILY 90 tabs 3RF Discontinued valsartan Discontinued Reason: Doctor's Order 320 mg PO DAILY 90 tabs 0RF
[2025-03-28 13:59] VITALS: BP 124/62; PULSE 79; RESP 18; O2SAT 97; BMI 40.3
== END 2025-03-28 15:28 | disposition home or self-care (01) ==
LOC: HO.HMCC 13:46
PROVIDERS: PCP Internal Medicine; Visit Provider Internal Medicine
DX: I10 Essential (primary) hypertension (principal); E78.5 Hyperlipidemia, unspecified; R73.9 Hyperglycemia, unspecified

== ENCOUNTER → 2025-03-28 13:46 | Outpatient (BNVA) | payer MEDICAID, SELFPAY | PROVIDERS: PCP Internal Medicine; Visit Provider Internal Medicine | DX: I10 Essential (primary) hypertension (principal); R73.9 Hyperglycemia, unspecified; E78.5 Hyperlipidemia, unspecified | CPT/HCPCS: 99212 ==

== ENCOUNTER 2025-04-16 10:25 | Outpatient (REF) | payer MEDICAID, SELFPAY ==
--- NOTE | ~2025-04-16 | MM_ITS ---
EXAMINATION: MM SCREENING DIGITAL BREAST TOMOSYNTHESIS, BILATERAL CLINICAL INFORMATION: Screening. Asymptomatic. COMPARISON: Mammography: Comparison is made with available priors TECHNIQUE: Digital breast mammography with tomosynthesis is performed in both the craniocaudal and mediolateral oblique views along with computer-aided detection (CAD). FINDINGS: There are scattered areas of fibroglandular density. There are no significant masses, abnormal calcifications, or other abnormalities. MM/MM tomosynthesis screening BI IMPRESSION: No mammographic evidence of malignancy. ASSESSMENT: BI-RADS Category 1: Negative RECOMMENDATION: Routine annual mammography screening. 1 year F/U This examination should not preclude the clinical evaluation of a suspicious palpable abnormality. This patient's information was entered into a reminder system with a target due date for their next mammogram. Electronically signed by: Cathie Thurman DO 04/18/2025 10:29 AM [place]
--- OUTSIDE RECORDS SUMMARY | 2025-04-16 10:28 | XMS_ITS ---
Author Organization Unknown ENCOUNTERS Encounter Performer Location Date Diagnosis Diagnosis Status Pre Admit [address] [address] [id number] [address] [id number] LUIS A Pre Admit [address] [id number] [address] [address] [id number] LUIS A *Note: Encounters from your own facility or health system may be excluded. Allergies, Adverse Reactions, Alerts Allergen Type Severity Identification Date Medications Name Date Quantity Days Supplied GPI Number
== END 2025-04-16 10:26 | disposition home or self-care (01) ==
LOC: HO.MAMMO 10:25
PROVIDERS: PCP Internal Medicine; Visit Provider Internal Medicine
DX: Z12.31 Encounter for screening mammogram for malignant neoplasm of breast (principal)
CPT/HCPCS: 77063; 77067

== ENCOUNTER → 2025-04-16 10:30 | Outpatient (BNV) | payer MEDICAID, SELFPAY | PROVIDERS: PCP Internal Medicine; Visit Provider Internal Medicine | DX: Z12.31 Encounter for screening mammogram for malignant neoplasm of breast (principal) | CPT/HCPCS: 77063; 77067 ==